=== PATIENT | female | born 1970 | race Caucasian/White ===

== ENCOUNTER 2020-01-27 12:34 | Emergency (ER) | payer BC, OTHER ==
[~2020-01-27] VITALS: Ht 162.5 cm; Wt 1225.0 kg
--- NOTE | 2020-01-27 12:34 | NUR ---
Patient has called to state she was deferred from [facility] for evaluation and sent to ER. Pt was instructed to remain in car for nurse assist into ER through private [facility] Entrance. Pt not sure whether she needs ER visit but states back pain starting [id number] is really bothering her. COVID tested at [facility] 01/25/20 and is positive
--- NOTE | 2020-01-27 12:45 | NUR ---
Called to speak with patient. A helicopter has landed and ambulances coming to count includes the [facility]. Pt advised per RN watching for safety to enter ER garage doorway. Pt states she is fine and not SOA and will watch for RN to outside to motion her.
--- NOTE | 2020-01-27 12:53 | NUR ---
Patient has arrived to ED 5 to [facility] isolation room with RN accompanying. EKG being performed for c/o severe medial back pain since [id number].
[2020-01-27] MEDS ORDERED: LOVA10TA (13:25)
[2020-01-27] MEDS ORDERED: HYDR25TA4 (13:25)
[2020-01-27] MEDS ORDERED: ISOS30TA3 (13:25)
[2020-01-27] MEDS ORDERED: METF-399 (13:25)
[2020-01-27] MEDS ORDERED: PHEN37.53 (13:25)
[2020-01-27] MEDS ORDERED: ATEN50TA (13:25)
[2020-01-27] MEDS ORDERED: FLUV100T3 (13:25)
[2020-01-27] MEDS ORDERED: VENL75CA93 (13:25)
[2020-01-27] MEDS ORDERED: ALPR0.5T7 (13:25)
[2020-01-27] MEDS ORDERED: RIVA20TA (13:25)
[2020-01-27] MEDS ORDERED: LOSA50TA63 (13:25)
[2020-01-27] MEDS ORDERED: SEMA1PEN (13:25)
[2020-01-27] MEDS ORDERED: VENL150C98 (13:25)
--- NOTE | 2020-01-27 13:28 | NUR ---
Portable chest xray completed
--- NOTE | 2020-01-27 13:39 | Diagnostic Imaging Report ---
EXAM: CHEST 1 VIEW AP/PA ONLY INDICATION: Back pain. COMPARISON: None. FINDINGS: Normal heart size and central pulmonary vascularity. Low lung volumes. No focal pulmonary opacity, pleural effusion or pneumothorax. No acute osseous findings. IMPRESSION: Low lung volumes. Chest otherwise negative. Dictated by: Dictated on workstation # [id number]
[2020-01-27] MEDS ORDERED: morphine INJ 10 MG/ML 1ML (SYR OR VIAL) IVP STA (13:44)
[2020-01-27] MEDS ORDERED: ONDANSETRON 4 MG/2 ML (SDV) Z0FRAN IVP ONE (13:45)
[2020-01-27 13:56] LABS: HEMATOCRIT 43 % (35-52); HEMOGLOBIN 13.8 G/DL (11.5-16.0); MEAN CORPUSCULAR HEMOGLOBIN 27 PG (25-34); MEAN CORPUSCULAR HGB CONC 33 G/DL (32-36); MEAN CORPUSCULAR VOLUME 85 FL (80-99); PLATELET COUNT 181 10^3/uL (130-400)
[2020-01-27 13:57] LABS: BASOPHILS % (AUTO) 1 % (0-10); EOSINOPHILS % (AUTO) 3 % (0-10); LYMPHOCYTES % (AUTO) 54 % (12-44); MONOCYTES % (AUTO) 11 % (0-12); NEUTROPHILS % (AUTO) 32 % (42-75)
[2020-01-27 13:58] LABS: EOSINOPHILS # (AUTO) 0.1 10^3/uL (0.0-0.3); LYMPHOCYTES # (AUTO) 2.2 X 10^3 (1.0-4.0); MONOCYTES # (AUTO) 0.5 X 10^3 (0.0-1.0); NEUTROPHILS # (AUTO) 1.3 X 10^3 (1.8-7.8)
[2020-01-27 14:08] LABS: ALANINE AMINOTRANSFERASE 20 U/L (0-55); ALKALINE PHOSPHATASE 71 U/L (40-136); BILIRUBIN,TOTAL 0.2 MG/DL (0.1-1.0); BUN/CREATININE RATIO 16; CARBON DIOXIDE 29 MMOL/L (21-32); CHLORIDE 96 MMOL/L (98-107); CREATININE SERUM 0.62 MG/DL (0.60-1.30); GFR ESTIMATED > 60; GLUCOSE 149 MG/DL (70-105); POTASSIUM 3.4 MMOL/L (3.6-5.0); SODIUM 134 MMOL/L (135-145)
[2020-01-27 14:09] LABS: TOTAL PROTEIN 7.1 GM/DL (6.4-8.2)
[2020-01-27 14:12] LABS: CLARITY,URINE CLEAR; COLOR,URINE YELLOW; PROTEIN,URINE NEGATIVE (NEGATIVE)
[2020-01-27 14:13] LABS: BACTERIA,URINE NEGATIVE /HPF; BILIRUBIN,URINE NEGATIVE (NEGATIVE); GLUCOSE, URINE (UA) NEGATIVE (NEGATIVE); KETONES,URINE NEGATIVE (NEGATIVE); LEUKOCYTE ESTERASE ,URINE NEGATIVE (NEGATIVE); NITRITE,URINE NEGATIVE (NEGATIVE); SQUAMOUS EPITHELIAL CELL,UR 0-2 /HPF; WBC,URINE RARE /HPF
[2020-01-27] MEDS ORDERED: TRM50T PO (14:42)
[2020-01-27] MEDS ORDERED: CYCL10TA9 PO (14:42)
[2020-01-27 14:53] VITALS: BP 119/81
--- NOTE | 2020-01-27 14:57 | ED Back Pain ---
General Chief Complaint: Back Problems Stated Complaint: CHEST PAIN Nursing Triage Note: Patient presents to ER with severe medial back pain along bra line starting [id number]. Pt states she is COVID positive 01/25/20 from [facility] testing. Cough last to beginning h.a. then severe sinus pressure Tuesday. No current respiratory sx but mild non-prod cough and back pain. Nursing Sepsis Screen: No Definite Risk Source of Information: Patient History of Present Illness Date Seen by Provider: Jan 27, 2020 Time Seen by Provider: 13:00 Initial Comments Patient is a 49-year-old COVID positive female who presents with complaints of cough, upper thoracic back pain, generalized malaise. Symptom onset was 4 days ago. Back pain is gradually progressed over the past 2 days. Currently denies fever chills, nausea vomiting or sweats. No shortness of breath, upper abdominal pain. No urinary frequency urgency or dysuria. Patient does report mild headache and took Tylenol prior to ED arrival with minimal relief of headache and back pain. Does have history of PE and is currently anticoagulated on his rales ago. Denies missed doses. Denies increased leg pain or swelling. No other acute symptoms or complaints. Timing/Duration: 4-5 Days Severity: Moderate Pain/Injury Location: Back Modifying Factors: Improves With Movement, Improves With Pain Medication Associated Symptoms: denies symptoms Allergies and Home Medications Allergies Coded Allergies: No Known Drug Allergies (Unverified , 01/27/20) Home Medications Cyclobenzaprine HCl 10 Mg Tablet, 10 MG PO TID Prescribed by: DARIO MARCUM on 01/27/20 1442 Tramadol HCl 50 Mg Tablet, 50 MG PO Q6H PRN for PAIN Prescribed by: DARIO MARCUM on 01/27/20 1442 Patient Home Medication List Home Medication List Reviewed: Yes Review of Systems Constitutional: see HPI EENTM: see HPI Respiratory: see HPI Cardiovascular: see HPI Gastrointestinal: see HPI Genitourinary: see HPI Musculoskeletal: back pain Skin: see HPI Psychiatric/Neurological: See HPI All Other Systems Reviewed Negative Unless Noted: Yes Past Gedeslg-Ygxkwk-Soxvpz Hx Past Med/Social Hx: Reviewed Nursing Past Med/Soc Hx Patient Social History Alcohol Use: Denies Use Recreational Drug Use: No Smoking Status: Never a Smoker Recent Foreign Travel: No Contact w/Someone Who Travel: No Recent Infectious Disease Expo: No Recent Hopitalizations: No Physical Abuse: No Sexual Abuse: No Mistreated: No Fear: No Immunizations Up To Date Date of Influenza Vaccine: Dec 25, 2019 Seasonal Allergies Seasonal Allergies: No Past Medical History Surgeries: Yes (Foot surgery, partial hysterectomy) Section, Gallbladder, Hysterectomy, Orthopedic Respiratory: Yes (PE approx 15 yrs ago, on Xaralto) Pulmonary Embolism Cardiac: Yes High Cholesterol, Hypertension Neurological: No : No 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 oz. kg; 463.00 BMI Method: General Appearance: WD/WN, Anxious, Mild Distress HEENT: PERRL/EOMI, Normal ENT Inspection Neck: Full Range of Motion, Supple Cardiovascular: Regular Rate, Rhythm Respiratory: Chest Non Tender, Lungs Clear, Normal Breath Sounds, No Accessory Muscle Use, No Respiratory Distress Gastrointestinal: No Abnormal Bowel Sounds, No Guarding Back: Normal Inspection, No CVA Tenderness, No Vertebral Tenderness Extremity: Non Tender, No Calf Tenderness Neurologic/Psychiatric: Alert, Oriented x3, No Motor/Sensory Deficits Skin: Normal Color, Warm/Dry Lymphatic: No Adenopathy Progress/Results/Core Measures Results/Orders Lab Results Laboratory Tests Test 01/27/20 13:10 01/27/20 14:00 Range/Units White Blood Count 4.0 L 4.3-11.0 10^3/uL Red Blood Count 5.03 4.35-5.85 10^6/uL Hemoglobin 13.8 11.5-16.0 G/DL Hematocrit 43 35-52 % Mean Corpuscular Volume 85 80-99 FL Mean Corpuscular Hemoglobin 27 25-34 PG Mean Corpuscular Hemoglobin Concent 33 32-36 G/DL Red Cell Distribution Width 13.5 10.0-14.5 % Platelet Count 181 130-400 10^3/uL Mean Platelet Volume 10.0 7.4-10.4 FL Immature Granulocyte % (Auto) 0 % Neutrophils (%) (Auto) 32 L 42-75 % Lymphocytes (%) (Auto) 54 H 12-44 % Monocytes (%) (Auto) 11 0-12 % Eosinophils (%) (Auto) 3 0-10 % Basophils (%) (Auto) 1 0-10 % Neutrophils # (Auto) 1.3 L 1.8-7.8 X 10^3 Lymphocytes # (Auto) 2.2 1.0-4.0 X 10^3 Monocytes # (Auto) 0.5 0.0-1.0 X 10^3 Eosinophils # (Auto) 0.1 0.0-0.3 10^3/uL Basophils # (Auto) 0.0 0.0-0.1 10^3/uL Immature Granulocyte # (Auto) 0.0 0.0-0.1 10^3/uL D-Dimer 0.12 0.00-0.49 UG/ML Sodium Level 134 L 135-145 MMOL/L Potassium Level 3.4 L 3.6-5.0 MMOL/L Chloride Level 96 L 98-107 MMOL/L Carbon Dioxide Level 29 21-32 MMOL/L Anion Gap 9 5-14 MMOL/L Blood Urea Nitrogen 10 7-18 MG/DL Creatinine 0.62 0.60-1.30 MG/DL Estimat Glomerular Filtration Rate > 60 BUN/Creatinine Ratio 16 Glucose Level 149 H 70-105 MG/DL Calcium Level 9.0 8.5-10.1 MG/DL Corrected Calcium 9.0 8.5-10.1 MG/DL Total Bilirubin 0.2 0.1-1.0 MG/DL Aspartate Amino Transf (AST/SGOT) 16 5-34 U/L Alanine Aminotransferase (ALT/SGPT) 20 0-55 U/L Alkaline Phosphatase 71 40-136 U/L Troponin I < 0.30 <0.30 NG/ML Total Protein 7.1 6.4-8.2 GM/DL Albumin 4.0 3.2-4.5 GM/DL Urine Color YELLOW Urine Clarity CLEAR Urine pH 6.0 5-9 Urine Specific [place] 1.020 1.016-1.022 Urine Protein NEGATIVE NEGATIVE Urine Glucose (UA) NEGATIVE NEGATIVE Urine Ketones NEGATIVE NEGATIVE Urine Nitrite NEGATIVE NEGATIVE Urine Bilirubin NEGATIVE NEGATIVE Urine Urobilinogen 0.2 < = 1.0 MG/DL Urine Leukocyte Esterase NEGATIVE NEGATIVE Urine RBC (Auto) NEGATIVE NEGATIVE Urine RBC NONE /HPF Urine WBC RARE /HPF Urine Squamous Epithelial Cells 0-2 /HPF Urine Crystals NONE /LPF Urine Bacteria NEGATIVE /HPF Urine Casts NONE /LPF Urine Mucus NEGATIVE /LPF Urine Culture Indicated NO My Orders Orders - DARIO MARCUM DO Chest 1 View Ap/Pa Only (01/27/20 13:24) Morphine Injection (Morphine Injection (01/27/20 13:44) Ondansetron Injection (Zofran Injectio (01/27/20 13:45) Cbc With Automated Diff (01/27/20 13:44) Troponin I Fs (01/27/20 13:44) Comprehensive Metabolic Panel (01/27/20 13:44) Ua Culture If Indicated (01/27/20 13:44) Fibrin Degradation Products (01/27/20 13:44) Ekg Tracing (01/27/20 12:53) Medications Given in ED Current Medications Medications Dose Ordered Sig/Milady Route Start Time Stop Time Status Last Admin Dose Admin Ondansetron HCl 4 mg ONCE ONCE IVP 01/27/20 13:45 01/27/20 13:46 DC 01/27/20 13:54 4 MG Vital Signs/I&O 01/27/20 01/27/20 12:53 13:54 Temp 37.0 37.0 Pulse 73 Resp 20 B/P (MAP) 102/79 (87) Pulse Ox 100 O2 Delivery Room Air Blood Pressure Mean: 87 Departure Impression Primary Impression: Musculoskeletal back pain Additional Impression: COVID-19 Disposition: 01 HOME, SELF-CARE Condition: Stable Departure-Patient Inst. Decision time for Depature: 13:30 Patient Instructions: Back Muscle Strain (DC) Scripts Cyclobenzaprine HCl (Cyclobenzaprine HCl) 10 Mg Tablet 10 MG PO TID, #30 TAB Prov: DARIO MARCUM DO 01/27/20 Tramadol HCl (Tramadol HCl) 50 Mg Tablet 50 MG PO Q6H PRN for PAIN for 3 Days, #20 TAB 0 Refills Prov: DARIO MARCUM DO 01/27/20 DARIO MARCUM DO Jan 27, 2020 14:57
== END 2020-01-27 14:53 | disposition home or self-care (01) ==
LOC: EDUNIT# 12:34 → ER FS 12:36
DX: M54.9 Dorsalgia, unspecified (principal); U07.1 COVID-19; F41.9 Anxiety disorder, unspecified
CPT/HCPCS: 36415; 71045; 80053; 81000; 84484; 85025; 85379; 93005

== ENCOUNTER 2020-02-05 11:52 | Observation (INO) | payer BC ==
[~2020-02-05] VITALS: Ht 162.6 cm; Wt 117.3 kg
[~2020-02-05 11:52] MED LIST: ALPR0.5T7 PO; ATEN50TA PO; CYCL10TA9 PO; FLUV100T3 PO; HYDR25TA4 PO; ISOS30TA3 PO; LOSA50TA63 PO; LOVA10TA PO; METF-399 PO; PHEN37.53 PO; RIVA20TA PO; SEMA1PEN INJ; TRM50T PO; VENL150C98 PO; VENL75CA93 PO
[2020-02-05] MEDS ORDERED: morphine INJ 10 MG/ML 1ML (SYR OR VIAL) IM STA (12:18)
[2020-02-05] MEDS ORDERED: ONDANSETRON 4 MG (ZOFRAN) ORAL DISSOLVE TAB PO STA (12:18)
--- NOTE | 2020-02-05 12:58 | ED Back Pain ---
General Chief Complaint: Lower Extremity Stated Complaint: RT HIP/LEG PAIN History of Present Illness Date Seen by Provider: Feb 05, 2020 Time Seen by Provider: 12:00 Initial Comments Patient is a 49-year-old female who presents with acute onset right hip pain radiating down to right lateral leg below the knee. Symptom onset was 4 hours ago while getting ready to work. Patient states she took a step off her porch and felt a sudden sharp shooting pain. Pain is originally reported as moderate but has gradually worsened throughout the day to the point that patient needed assistance with a wheelchair order to use the bathroom. Patient has had ibuprofen and Tylenol prior to ED arrival without relief of symptoms. She was evaluated by her chiropractor and an adjustment for hip which did not help.. She denies extremity weakness or loss of sensation or low back pain. No other acute symptoms or complaints. Location: Other Timing/Duration: 4-6 Hours Severity: Severe Pain/Injury Location: Pelvis Radiation: Buttocks, Lower Legs Method of Injury: Unknown Modifying Factors: Improves With Movement, Improves With Pain Medication Associated Symptoms: denies symptoms Allergies and Home Medications Allergies Coded Allergies: No Known Drug Allergies (Unverified , 01/27/20) Home Medications Cyclobenzaprine HCl 10 Mg Tablet, 10 MG PO TID Prescribed by: DARIO MARCUM on 01/27/20 144 Tramadol HCl 50 Mg Tablet, 50 MG PO Q6H PRN for PAIN Prescribed by: DARIO MARCUM on 01/27/20 1442 Patient Home Medication List Home Medication List Reviewed: Yes Review of Systems Constitutional: see HPI EENTM: see HPI Respiratory: see HPI Cardiovascular: see HPI Gastrointestinal: no symptoms reported Genitourinary: no symptoms reported Musculoskeletal: no symptoms reported Skin: no symptoms reported Psychiatric/Neurological: No Symptoms Reported Past Whtbvtr-Ebyrmh-Pkwwqg Hx Past Med/Social Hx: Reviewed Nursing Past Med/Soc Hx Patient Social History Alcohol Use: Denies Use Recreational Drug Use: No Smoking Status: Never a Smoker 2nd Hand Smoke Exposure: No Recent Hopitalizations: No Physical Abuse: No Sexual Abuse: No Mistreated: No Fear: No Immunizations Up To Date Date of Influenza Vaccine: Dec 25, 2019 Seasonal Allergies Seasonal Allergies: No Past Medical History Surgeries: Yes (Foot surgery, partial hysterectomy) Section, Gallbladder, Hysterectomy, Orthopedic Respiratory: Yes (PE approx 15 yrs ago, on Xarelto) Pulmonary Embolism Cardiac: Yes High Cholesterol, Hypertension Neurological: No 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 oz. kg; 463.00 BMI Method: General Appearance: Anxious, Mild Distress HEENT: PERRL/EOMI, Normal ENT Inspection, Pharynx Normal Neck: Non Tender, Supple Cardiovascular: Regular Rate, Rhythm Respiratory: Chest Non Tender, Lungs Clear Gastrointestinal: Non Tender, Soft Back: Normal Inspection, No CVA Tenderness, Other (R upper buttock pain/tendernes. + SLR on right. ) Extremity: Non Tender, No Calf Tenderness Neurologic/Psychiatric: Alert, Oriented x3 Progress/Results/Core Measures Results/Orders My Orders Orders - DARIO MARCUM DO Morphine Injection (Morphine Injection (02/05/20 12:18) Ondansetron Oral Dissolve Tab (Zofran (02/05/20 12:18) Departure Communication (Admissions) Right buttock pain with radiculopathy. No focal neurologic deficits. Pain improved with treatment. Recommend continued supportive care with PCP follow-up in chiropractic referral as needed. Impression Primary Impression: Musculoskeletal pain of right lower extremity Disposition: HOME, SELF-CARE Condition: Stable Departure-Patient Inst. Decision time for Depature: 12:57 Referrals: [facility] (PCP) Primary Care Physician DAKOTA AU APRN (Family) Primary Care Physician Patient Instructions: Muscle Strain, Hip Pain Add. Discharge Instructions: Please avoid strenuous physical activity and heavy lifting. Take tramadol and Flexeril as needed for pain relief and hydrocodone as needed for additional symptom control. Follow-up with your PCP and/or chiropractor for further management. All discharge instructions reviewed with patient and/or family. Voiced understanding. Scripts Hydrocodone/Acetaminophen (Hydrocodone-Acetamin 5-325 mg) 1 Each Tablet 1 EACH PO Q6H, #14 TAB Prov: DARIO MARCUM DO 02/05/20 Work/School Note: Work Release Form Date Seen in the Emergency Department: Feb 05, 2020 Return to Work: Feb 07, 2020 Restrictions: No Restrictions DARIO MARCUM DO Feb 05, 2020 12:57
[2020-02-05] MEDS ORDERED: ACHD5005 PO (12:59)
[2020-02-05] MEDS ORDERED: ORPHENADRINE 60 MG/2 ML (NORFLEX) AMP (ED ONLY) IVP ONE (13:30)
[2020-02-05] MEDS ORDERED: fentaNYL INJECTION 100 MCG/2 ML AMP IVP ONE (14:45)
[2020-02-05 14:54] LABS: BASOPHILS % (AUTO) 0 % (0-10); EOSINOPHILS # (AUTO) 0.3 10^3/uL (0.0-0.3); EOSINOPHILS % (AUTO) 2 % (0-10); HEMATOCRIT 41 % (35-52); HEMOGLOBIN 13.7 G/DL (11.5-16.0); LYMPHOCYTES # (AUTO) 4.1 X 10^3 (1.0-4.0); LYMPHOCYTES % (AUTO) 31 % (12-44); MEAN CORPUSCULAR HEMOGLOBIN 28 PG (25-34); MEAN CORPUSCULAR HGB CONC 34 G/DL (32-36); MEAN CORPUSCULAR VOLUME 83 FL (80-99); MEAN PLATELET VOLUME 9.8 FL (7.4-10.4); MONOCYTES # (AUTO) 0.9 X 10^3 (0.0-1.0); MONOCYTES % (AUTO) 7 % (0-12); NEUTROPHILS # (AUTO) 7.6 X 10^3 (1.8-7.8); NEUTROPHILS % (AUTO) 58 % (42-75); PLATELET COUNT 281 10^3/uL (130-400); WHITE BLOOD COUNT 13.2 10^3/uL (4.3-11.0)
[2020-02-05 15:01] LABS: CARBON DIOXIDE 30 MMOL/L (21-32); CHLORIDE 97 MMOL/L (98-107); POTASSIUM 3.2 MMOL/L (3.6-5.0); SODIUM 140 MMOL/L (135-145)
[2020-02-05 15:02] LABS: ALANINE AMINOTRANSFERASE 22 U/L (0-55); ALBUMIN 3.9 GM/DL (3.2-4.5); ALKALINE PHOSPHATASE 59 U/L (40-136); BILIRUBIN,TOTAL 0.2 MG/DL (0.1-1.0); BUN/CREATININE RATIO 32; CALCIUM 9.4 MG/DL (8.5-10.1); GFR ESTIMATED > 60; GLUCOSE 136 MG/DL (70-105); TOTAL PROTEIN 6.7 GM/DL (6.4-8.2)
--- NOTE | 2020-02-05 15:38 | Diagnostic Imaging Report ---
INDICATION: Right hip pain. FINDINGS: Three views. Lumbosacral spine shows good alignment. Body height and disc spaces are well-maintained. Facets show good alignment without pars defect. Mild sclerotic changes are noted along the SI joints and the L5-S1 facets bilaterally. There is a stimulator lead noted overlying the right sacrum. IMPRESSION: Mild degenerative changes of the SI joints and L5-S1 facets. Dictated by: Dictated on workstation # [id number]
--- NOTE | 2020-02-05 16:54 | NUR ---
REPORT WAS GIVEN TO STAN AZUL AND STAN ROBERT AT THIS TIME. CARE WAS TRANSFERRED AT THIS TIME. REPORT TO MIRANDA WAS GIVEN TO [id number].
--- NOTE | 2020-02-05 16:57 | NUR ---
Called MIGUEL Denney and is in a patient's room, so she will call back in a sec to get patient report.
[2020-02-05] MEDS ORDERED: CATHETER FLUSH 10 ML SYR IV PRN (18:00)
[2020-02-05] MEDS ORDERED: ONDANSETRON 4 MG/2 ML (SDV) Z0FRAN IV PRN (18:00)
[2020-02-05] MEDS ORDERED: morphine INJ 4 MG/ML 1 ML (VIAL/SYRINGE) IV PRN (18:00)
[2020-02-05 20:00] VITALS: BP 108/69
[2020-02-05] MEDS ORDERED: RIVAROXABAN 20 MG TABLET (XARELTO) PO NR (20:00)
[2020-02-05] MEDS ORDERED: MELATONIN 3 MG TABLET PO PRN (20:00)
[2020-02-05] MEDS ORDERED: diphenhydrAMINE 25 MG TAB (BENADRYL) PO PRN (20:00)
[2020-02-05] MEDS ORDERED: ACETAMINOPHEN 500 MG TAB (TYLENOL) PO PRN (20:00)
[2020-02-05] MEDS ORDERED: LOPERAMIDE 2 MG (IMODIUM) TABLET PO PRN (20:00)
[2020-02-05] MEDS ORDERED: ONDANSETRON 4 MG/2 ML (SDV) Z0FRAN IVP PRN (20:00)
[2020-02-05] MEDS ORDERED: BISACODYL 10 MG SUPP (DULCOLAX) PR PRN (20:00)
[2020-02-05] MEDS ORDERED: DOCUSATE SODIUM 100 MG (COLACE) CAP PO PRN (20:00)
[2020-02-05] MEDS ORDERED: CALCIUM CARBONATE 500 MG (TUMS) TAB.CHEW PO PRN (20:00)
[2020-02-05] MEDS ORDERED: ALPRAZolam 0.25 MG (XANAX) TAB PO PRN (20:00)
[2020-02-05] MEDS: SENNA W/DOCUSATE (SENOKOT S) TABLET PO SCH (20:18)
[2020-02-05] MEDS: CATHETER FLUSH 10 ML SYR IV SCH (20:21)
[2020-02-05] MEDS: HYDROcodone/APAP 5 MG/325 MG (LORTAB) TAB PO PRN (20:21)
[2020-02-06 00:59] VITALS: BP 121/76
[2020-02-06] MEDS: HYDROcodone/APAP 5 MG/325 MG (LORTAB) TAB PO PRN ×3 (03:46→11:44)
[2020-02-06] MEDS: CATHETER FLUSH 10 ML SYR IV SCH ×2 (04:27→11:45)
[2020-02-06 04:41] VITALS: BP 141/78
--- NOTE | 2020-02-06 05:41 | History & Physical-Hospitalist ---
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 She was placed on IV steroids and IV medication and sent to the hospital and at this current time CT scan showed no evidence of any spinal stenosis or any type of slipped disc, couldnt get an MRI because of the bladder stimulator but we will check right hip X-ray, consult ortho and initiate IV Solumedrol X1 again and Baclofen to see if we can help with PT in order to discharge her today. Patient has recovered from COVID 3 weeks ago. Source: patient Exam Limitations: no limitations Date Seen 02/06/20 Time Seen by a Provider: 10:00 Attending Physician Estelita Pfeiffer DO [facility] Referring Physician Date of Admission Feb 05, 2020 at 17:44 Home Medications & Allergies Home Medications Reviewed patient Home Medication Reconciliation performed by pharmacy medication reconciliations photographic laboratory technician and/or nursing. Patients Allergies have been reviewed. Allergies Allergies Coded Allergies No Known Drug Allergies (Lnnlgtvdln92/22/20) Past Nyrggwp-Xwqvfq-Cpujpw Hx Past Med/Social Hx: Reviewed Nursing Past Med/Soc Hx, Reviewed and Corrections made Patient Social History Marrital Status: single Employed/Student: employed Alcohol Use: Denies Use Recreational Drug Use: No Smoking Status: Never a Smoker 2nd Hand Smoke Exposure: No Recent Foreign Travel: No Contact w/other who traveled: No Recent Hopitalizations: No Recent Infectious Disease Expo: Yes (Covid + on Jan 24, recently off precautions) Immunizations Up To Date Date of Influenza Vaccine: Dec 20, 2019 Seasonal Allergies Seasonal Allergies: No Past Medical History Surgeries: Section, Gallbladder, Hysterectomy, Orthopedic Cardiac: High Cholesterol, Hypertension Hysterectomy Endocrine: Diabetes, Non-Insulin dep Psychosocial: Anxiety Skin/Integumentary: Recent Skin Changes History of Blood Disorders: Yes (had a PE 15 yrs ago) Review of Systems Constitutional: see HPI Musculoskeletal: back pain, muscle pain, muscle stiffness, muscle cramps Physical Exam Physical Exam Vital Signs Vital Signs - First Documented 02/05/20 11:52 Temp 35.6 Pulse 72 Resp 20 B/P (MAP) 133/90 (104) Pulse Ox 100 O2 Delivery Room Air Capillary Refill : Less Than 3 Seconds Height, Weight, BMI Height: '" Weight: lbs. oz. kg; 44.36 BMI Method: General Appearance: No Apparent Distress, Chronically ill, Obese Eyes: Right Eye Normal Inspection, Right Eye PERRL HEENT: PERRL/EOMI, Normal ENT Inspection, Pharynx Normal, Moist Mucous Membranes Neck: Full Range of Motion, Normal Inspection, Non Tender Respiratory: Chest Non Tender, Lungs Clear, Normal Breath Sounds, No Accessory Muscle Use, No Respiratory Distress Cardiovascular: Regular Rate, Rhythm, No Edema, No Gallop, No JVD, No Murmur, Normal Peripheral Pulses Gastrointestinal: Normal Bowel Sounds, No Organomegaly, No Pulsatile Mass, Non Tender, Soft Back: Normal Inspection, No CVA Tenderness, No Vertebral Tenderness Extremity: Normal Capillary Refill, Normal Inspection, Normal Range of Motion, Non Tender, No Calf Tenderness, No Pedal Edema Neurologic/Psychiatric: Alert, Oriented x3, No Motor/Sensory Deficits, Normal Mood/Affect Skin: Normal Color, Warm/Dry Lymphatic: No Adenopathy Results Results/Procedures Labs Laboratory Tests 02/05/20 13:40 02/06/20 06:03 Patient resulted labs reviewed. Assessment/Plan Admission Diagnosis Assessment: Incapacitating right back pain and right hip pain DM Obesity HTN HLP Plan: IV steroids CT lumbar spine Right hip xray Steroids Admission Status: Observation Diagnosis/Problems Diagnosis/Problems (1) Musculoskeletal pain of right lower extremity Status: Acute (2) Musculoskeletal back pain Status: Acute (3) COVID-19 Status: Acute Clinical Quality Measures DVT/VTE Risk/Contraindication: Risk Factor Score Per Nursin RFS Level Per Nursing on Admit: 4+=Very High ESTELITA PFEIFFER DO Feb 06, 2020 05:41
[2020-02-06 06:16] LABS: BASOPHILS % (AUTO) 0 % (0-10); EOSINOPHILS % (AUTO) 0 % (0-10); HEMATOCRIT 40 % (35-52); HEMOGLOBIN 13.2 g/dL (11.5-16.0); LYMPHOCYTES # (AUTO) 1.8 10^3/uL (1.0-4.0); LYMPHOCYTES % (AUTO) 20 % (12-44); MEAN CORPUSCULAR HEMOGLOBIN 28 pg (25-34); MEAN CORPUSCULAR HGB CONC 33 g/dL (32-36); MEAN CORPUSCULAR VOLUME 84 fL (80-99); MEAN PLATELET VOLUME 9.9 fL (9.0-12.2); MONOCYTES # (AUTO) 0.7 10^3/uL (0.0-1.0); MONOCYTES % (AUTO) 8 % (0-12); NEUTROPHILS # (AUTO) 6.2 10^3/uL (1.8-7.8); NEUTROPHILS % (AUTO) 69 % (42-75); PLATELET COUNT 241 10^3/uL (130-400); WHITE BLOOD COUNT 8.9 10^3/uL (4.3-11.0)
[2020-02-06 06:42] LABS: ALBUMIN 3.4 GM/DL (3.2-4.5); CHLORIDE 97 MMOL/L (98-107); POTASSIUM 4.1 MMOL/L (3.6-5.0); SODIUM 137 MMOL/L (135-145)
[2020-02-06 06:44] LABS: CALCIUM 8.4 MG/DL (8.5-10.1)
[2020-02-06 06:45] LABS: GLUCOSE 218 MG/DL (70-105); TOTAL PROTEIN 6.1 GM/DL (6.4-8.2)
[2020-02-06 06:46] LABS: CARBON DIOXIDE 28 MMOL/L (21-32)
[2020-02-06 06:47] LABS: BILIRUBIN,TOTAL 0.3 MG/DL (0.1-1.0)
[2020-02-06 06:48] LABS: ALKALINE PHOSPHATASE 54 U/L (40-136); CREATININE SERUM 0.68 MG/DL (0.60-1.30); GFR ESTIMATED > 60
[2020-02-06 06:50] LABS: BUN/CREATININE RATIO 22
[2020-02-06 06:51] LABS: ALANINE AMINOTRANSFERASE 25 U/L (0-55)
[2020-02-06 07:30] VITALS: BP 132/65
[2020-02-06] MEDS: SENNA W/DOCUSATE (SENOKOT S) TABLET PO SCH (08:13)
--- NOTE | 2020-02-06 10:36 | Diagnostic Imaging Report ---
PROCEDURE: CT lumbar spine without contrast. TECHNIQUE: Multiple contiguous axial images were obtained through the lumbar spine without the use of intravenous contrast. Sagittal and coronal reformations were then performed. Auto Exposure Controls were utilized during the CT exam to meet ALARA standards for radiation dose reduction. INDICATION: Pain radiating to the right hip and leg There is normal height and alignment of the lumbar vertebral bodies. Disc spaces are well-maintained. There are mild degenerated facets with no disc herniation or bony stenosis seen at any level. No nerve impingement is evident. There is no acute bony abnormality. There is no mass. There is a 6 mm calculus in the lower pole of the right kidney. IMPRESSION: There are mild degenerative changes present with no disc herniation or bony stenosis seen. There is a 6 mm nonobstructing calculus in the lower pole of the right kidney. Dictated by: Dictated on workstation # [id number]
[2020-02-06] MEDS ORDERED: methylPREDNISolone 40 MG/ML (Solu-MEDROL) VIAL IV NR (11:15)
[2020-02-06] MEDS ORDERED: BACLOFEN 10 MG (LIORESAL) TAB PO SCH (11:15)
[2020-02-06] MEDS ORDERED: ACET-2267 PO (11:22)
[2020-02-06] MEDS ORDERED: CYCL10TA9 PO (11:22)
[2020-02-06] MEDS ORDERED: TRAM50TA3 PO (11:22)
--- NOTE | 2020-02-06 11:24 | NUR ---
SPOKE WITH THE PT AND WENT THRU THE EXT MED HISTORY TO COMPLETE THE MED REC PT WAS ABLE TO NAME ALL HER MEDICATIONS WELL WHEN/HOW SHE TAKES EACH. ALL THE INFORMATION SHE PROVIDED MATCHED THE EXT MED HISTORY GLIMEPIRIDE WAS LAST FILLED ON 10-07-2019 #90/90DS ACCORDING TO THE EXT MED HISTORY- HOWEVER PT SAYS THIS MED HAS BEEN DISCONTINUED DUE TO IMPROVED A1C OTC MEDS: TYLENOL
[2020-02-06 11:38] VITALS: BP 128/81
--- NOTE | 2020-02-06 12:10 | Diagnostic Imaging Report ---
INDICATION: Right hip pain starting after stepping off the porch one day earlier. TECHNIQUE: 2 views of the right hip. CORRELATION STUDY: None FINDINGS: Images of the hip demonstrate no evidence for acute fracture. Alignment is anatomic. The femoral head acetabular relationship is unremarkable. The bony trabecular pattern is intact. A right-sided transsacral stimulator is present. IMPRESSION: 1. Negative for acute bony abnormality of the right hip. Dictated by: Dictated on workstation # [id number]
--- NOTE | 2020-02-06 12:14 | NUR ---
LEFT MESSAGE ON DR ALCALA'S REGARDING DR ZARAGOZA'S CONSULT AND THE HIP XRAY RESULTS
--- NOTE | 2020-02-06 12:47 | Occupational Therapy Eval ---
OT Evaluation-General/PLF Medical Diagnosis Admission Date Feb 05, 2020 at 17:44 Medical Diagnosis: R hip pain Onset Date: Feb 06, 2020 Therapy Diagnosis Therapy Diagnosis: Sciatica likely, interfering with I/ADL tasks Precautions Precautions/Isolations: Standard Precautions Referral Physician: Kentrell Palma Reason: Activity Tolerance, Self Care, Evaluation/Treatment, Strengthening/ROM Medical History Additional Medical History COVID + Jan 24 (off precautions), HTN, anx, PE hx Current History Pt admits with R hip pain that shoots distally to knee Reviewed History: Yes Social History Home: Single Level Current Living Status: Alone Entry Into Home: Ramp ADL-Prior Level of Function SCALE: Activities may be completed with or without assistive devices. 9-Vuxxdhziep-rlyjcdy completes the activity by him/herself with no assistance from a helper. 5-Set-up or Clean-up Assistance-helper sets up or cleans up; patient completes activity. Rowan assists only prior to or following the activity. 4-Supervision or Touching Assistance-helper provides verbal cues and/or touching/steadying and/or contact guard assistance as patient completes activity. Assistance may be provided throughout the activity or intermittently. 3-Partial/Moderate Assistance-helper does LESS THAN HALF the effort. Rowan lifts, holds or supports trunk or limbs, but provides less than half the effort. 2-Substantial/Maximal Assistance-helper does MORE THAN HALF the effort. Rowan lifts or holds trunk or limbs and provides more than half the effort. 3-Joacvpgjq-jjjrmk does ALL the effort. Patient does none of the effort to complete the activity. Or, the assistance of 2 or more helpers is required for the patient to complete the activity. If activity was not attempted, code reason: 7-Patient Refused. 9-Not Applicable-not attempted and the patient did not perform the activity before the current illness, exacerbation or injury. 10-Not Attempted due to Environmental Limitations-(lack of equipment, weather restraints, etc.). 88-Not Attempted due to Medical Conditions or Safety Concerns. ADL PLOF Comments IND without AD. 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 Pt describes pain as sharp/ shooting from hip downward when up/moving. Pt states it was "so bad, I had to use a w/c to go to the bathroom at work." Per signs/ sx, most likely sciatic nerve entrapment/ aggravation. Mental Status/Objective Patient Orientation: Normal For Age Current Glasses/Contacts: No Hearing Aids: No Dentures/Partials: No Upper Extremity ROM WLF BUE Upper Extremity Coordination WLF BUE Upper Extremity Sensation WLF BUE Upper Extremity Strength WLF BUE ADL-Treatment Eating (QC): 6 (per clinical judgment and pt report of today's tasks) Oral Hygiene (QC): 6 (per clinical judgment and pt report of today's tasks) Shower/Bathe Self (QC): 6 (per clinical judgment and pt report of today's tasks) Upper Body Dressing (QC): 6 (per clinical judgment and pt report of today's tasks) Lower Body Dressing (QC): 4 (per clinical judgment and pt report of today's tasks) Toileting Hygiene (QC): 4 (per clinical judgment and pt report of today's tasks) Other Treatments Pt in bed, nursing administering pain medication. Pt describes pain, stating she didn't do anything to aggravate leg. Pt is educated on sciatic nerve symptoms and actions that may lead to sciatic nerve issues. Pt performs 1 set of 5 nerve glides to R leg while laying supine with education of purpose and process. Pt is encouraged to complete this in bed as often as needed. Pt rolls to L side with R glute exposed; OT palpates mms within R glute with noted tension through ~4 " diameter. Mm tension release methods completed and pt is educated on completing on own as rendered. Pt agrees. Pt educated on OP PT's role in dry needling and benefits of massage/ nerve glides/ possibility of an order for OP PT if DO approves. Pt agrees. Pt is IND-SBA with ADLs per pt report, stating she toileted/ showered this am. No skilled OT indicated. D/c. Education OT Patient Education: Correct positioning, Exercise program, Home exercise program, Purpose of tx/functional activities Teaching Recipient: Patient Teaching Methods: Demonstration, Discussion Response to Teaching: Verbalize Understanding, Return Demonstration, Reinforcement Needed OT Rockboard Lather Goals Half-Way Goals 1=Demonstrate adherence to instructed precautions during ADL tasks. 2=Patient will verbalize/demonstrate understanding of assistive dev ices/modifications for ADL. 3=Patient will improve strength/tolerance for activity to enable patient to perform ADL's. OT Education/Plan Problem List/Assessment Assessment: No Skilled OT Needs ID'd Discharge Recommendations Plan/Recommendations: Discharge/Goals Met Therapy Discharge Recommendati: Home & Family, Post Acute PT Treatment Plan/Plan of Care Treatment,Training & Education: Yes Patient would benefit from OT for education, treatment and training to promote independence in ADL's, mobility, safety and/or upper extremity function for ADL's. Plan of Care: OTHER (eval only. d/c.) Treatment Duration: Feb 06, 2020 Frequency: 1 time per week Time/GCodes Start Time: 11:45 Stop Time: 12:00 Total Time Billed (hr/min): 15 Billed Treatment Time 1, EVL (15) d/c. ISELA MEAD OTR Feb 06, 2020 12:47
--- NOTE | 2020-02-06 13:32 | Consultation - Ortho ---
Consult - Ortho Subjective Date of Exam 02/06/20 Chief Complaint Right hip and leg pain HPI/Events since last exam Nahed Vaughn is a 49-year-old white female who noted the onset of right hip and leg pain yesterday morning. She was coming down off her porch stepping onto her driveway and felt a pain in her right hip region. She stated she didn't feel like she was going to fall her fall and she didn't twist her leg. Her pain gradually increased and she went to her chiropractor Dr. Brito who did an adjustment. He felt that there was some pelvic obliquity. This adjustment didn't help and her pain continued to increase. It got to the point where it was so bad she had difficulty walking so she went to the emergency room in [place]. She was evaluated there and continued with pain to the point where they thought it might be best to transfer her to [facility] for pain management and further workup. She continues with her pain although it is improved. She's had 2 doses of IV steroids. She is up walking with assistance without a walker or cane but continues with her pain. She states the pain is from her hip and goes down to mid thigh. She denies any numbness or tingling. She denies any back pain. She hasn't had a history of back problems. She denies any history of problems with her right hip. Medical, Surgical History Reviewed and no additions or changes Social History Reviewed and no additions or changes Family History Reviewed and no additions or changes Review of Systems Reviewed and no additions or changes Allergies: Coded Allergies: No Known Drug Allergies (Unverified , 01/27/20) Home Meds Reported Medications Acetaminophen (Tylenol Extra Strength) 500 Mg Tablet, 1000 MG PO Q8H PRN for PAIN-MILD (1-4), TAB 02/06/20 Cyclobenzaprine HCl (Cyclobenzaprine HCl) 10 Mg Tablet, 10 MG PO TID PRN for MUSCLE CRAMPS, TAB 02/06/20 Tramadol HCl (Tramadol HCl) 50 Mg Tablet, 50 MG PO Q6H PRN for PAIN-MODERATE (5- 7), TAB 02/06/20 Alprazolam (Alprazolam) 0.5 Mg Tablet, 0.5 MG PO BID PRN for ANXIETY, TAB 01/27/20 Isosorbide Mononitrate (Isosorbide Mononitrate ER) 30 Mg Tab.er.24h, 30 MG PO DA CELSO, TAB 01/27/20 Hydrochlorothiazide (Hydrochlorothiazide) 25 Mg Tablet, 25 MG PO DAILY, TAB 01/27/20 Fluvoxamine Maleate (Fluvoxamine Maleate) 100 Mg Tablet, 100 MG PO BID, TAB 01/27/20 Losartan Potassium (Losartan Potassium) 50 Mg Tablet, 50 MG PO HS, TAB 01/27/20 Venlafaxine HCl (Venlafaxine HCl ER) 150 Mg Cap.er.24h, 150 MG PO HS TAKES 75MG +150MG TO EQUAL 225MG 01/27/20 Venlafaxine HCl (Venlafaxine HCl ER) 75 Mg Cap.er.24h, 75 MG PO HS, CAP TAKES 75MG +150MG TO EQUAL 225MG 01/27/20 Atenolol (Atenolol) 50 Mg Tablet, 50 MG PO HS, TAB 01/27/20 Phentermine HCl (Phentermine HCl) 37.5 Mg Tablet, 37.5 MG PO DAILY PRN for APPETITE SUPPRESSION, TAB 01/27/20 Lovastatin (Lovastatin) 10 Mg Tablet, 10 MG PO HS, TAB 01/27/20 Semaglutide (Ozempic) 1 Mg/0.75 Ml Pen.injctr, 1 MG INJ TUESDAY, SYR 01/27/20 Rivaroxaban (Xarelto) 20 Mg Tablet, 20 MG PO HS, TAB 01/27/20 Metformin HCl (Metformin HCl) 1,000 Mg Tablet, 1000 MG PO BID, TAB 01/27/20 Discontinued Scripts Hydrocodone/Acetaminophen (Hydrocodone-Acetamin 5-325 mg) 1 Each Tablet, 1 EACH PO Q6H, #14 TAB Prov:DARIO MARCUM DO 02/05/20 Cyclobenzaprine HCl (Cyclobenzaprine HCl) 10 Mg Tablet, 10 MG PO TID, #30 TAB Prov:DARIO MARCUM DO 01/27/20 Tramadol HCl (Tramadol HCl) 50 Mg Tablet, 50 MG PO Q6H PRN for PAIN for 3 Days, #20 TAB 0 Refills Prov:DARIO MARCUM DO 01/27/20 Objective Exam Constitutional: [] HEENT: [] Neck: [] Cardiovascular: [] Respiratory: [] Gastrointestinal: [] Genitourinary: [] Skin: [] Back/Spine: [] No pain on palpation of the lumbar spine. She has minimal pain over the right sacroiliac joint. She does have significant pain on palpation over sciatic nerve. Extremities: [] Mild pain over the posterior aspect of the greater trochanter. Minimal pain with gentle flexion and extension or rotation of the hip and all the pain is posterior greater trochanter and sciatic notch. No anterior hip pain. No thigh pain. No swelling or bruising. No skin changes. No pain at the knee with full motion and no instability. Negative Homans. No calf tenderness. She does have a positive straight leg raise. No weakness on flexion and extension of the knee. No weakness on dorsiflexion plantar flexion foot and ankle. No weakness on dorsiflexion of the great toe. She has normal sensation to the foot and toes. Good capillary refill. Good pulses. Again no skin changes are noted. Neurologic: [] Psychiatric: [] Hematologic/lymphatic/immunologic: [] Vital Signs Vital Signs Date Time Temp Pulse Resp B/P (MAP) Pulse Ox O2 Delivery O2 Flow Rate FiO2 02/06/20 11:38 35.9 67 17 128/81 (97) 100 Room Air 02/06/20 08:00 98 Room Air 02/06/20 07:30 36.6 70 18 132/65 (87) 97 Room Air 02/06/20 04:41 36.3 64 20 141/78 (99) 98 Room Air 02/06/20 00:59 36.1 73 20 121/76 (91) 98 Room Air 02/05/20 20:00 36.2 78 18 108/69 (82) 94 Room Air 02/05/20 20:00 Room Air 02/05/20 18:31 Room Air 02/05/20 16:54 35.2 73 14 104/46 93 Room Air 02/05/20 15:51 35.6 I & O 02/06/20 07:00 Intake Total 650 ml Balance 650 ml Lab Results Laboratory Tests 02/05/20 13:40: White Blood Count 13.2H, Red Blood Count 4.94, Hemoglobin 13.7, Hematocrit 41, Mean Corpuscular Volume 83, Mean Corpuscular Hemoglobin 28, Mean Corpuscular Hemoglobin Concent 34, Red Cell Distribution Width 13.4, Platelet Count 281, Mean Platelet Volume 9.8, Immature Granulocyte % (Auto) 2, Neutrophils (%) (Auto) 58, Lymphocytes (%) (Auto) 31, Monocytes (%) (Auto) 7, Eosinophils (%) (Auto) 2, Basophils (%) (Auto) 0, Neutrophils # (Auto) 7.6, Lymphocytes # (Auto) 4.1H, Monocytes # (Auto) 0.9, Eosinophils # (Auto) 0.3, Basophils # (Auto) 0.0, Immature Granulocyte # (Auto) 0.2H, Sodium Level 140, Potassium Level 3.2L, Chloride Level 97L, Carbon Dioxide Level 30, Anion Gap 13, Blood Urea Nitrogen 19H, Creatinine 0.60, Estimat Glomerular Filtration Rate > 60, BUN/Creatinine Ratio 32, Glucose Level 136H, Calcium Level 9.4, Corrected Calcium 9.5, Total Bilirubin 0.2, Aspartate Amino Transf (AST/SGOT) 12, Alanine Aminotransferase (ALT/SGPT) 22, Alkaline Phosphatase 59, Total Protein 6.7, Albumin 3.9 02/06/20 06:03: White Blood Count 8.9, Red Blood Count 4.74, Hemoglobin 13.2, Hematocrit 40, Mean Corpuscular Volume 84, Mean Corpuscular Hemoglobin 28, Mean Corpuscular Hemoglobin Concent 33, Red Cell Distribution Width 13.3, Platelet Count 241, Mean Platelet Volume 9.9, Immature Granulocyte % (Auto) 2, Neutrophils (%) (Auto) 69, Lymphocytes (%) (Auto) 20, Monocytes (%) (Auto) 8, Eosinophils (%) (Auto) 0, Basophils (%) (Auto) 0, Neutrophils # (Auto) 6.2, Lymphocytes # (Auto) 1.8, Monocytes # (Auto) 0.7, Eosinophils # (Auto) 0.0, Basophils # (Auto) 0.0, Immature Granulocyte # (Auto) 0.2H, Sodium Level 137, Potassium Level 4.1, Chloride Level 97L, Carbon Dioxide Level 28, Anion Gap 12, Blood Urea Nitrogen 15, Creatinine 0.68, Estimat Glomerular Filtration Rate > 60, BUN/Creatinine Ratio 22, Glucose Level 218H, Calcium Level 8.4L, Corrected Calcium 8.9, Total B ilirubin 0.3, Aspartate Amino Transf (AST/SGOT) 12, Alanine Aminotransferase (ALT/SGPT) 25, Alkaline Phosphatase 54, Total Protein 6.1L, Albumin 3.4 Imaging I reviewed the CT scan of her lumbar spine and she has spurring anteriorly of several vertebral bodies. Is also some degenerative changes of the facet joints lower lumbar region. No real disc space narrowing. X-rays of the lumbar spine were reviewed as well and show with the above. X-rays of the right hip shows no degenerative changes of the hip joint and no calcification around the greater tuberosity. No fractures. Assessment and Plan Assessment Right hip pain slightly improved Problem List Right sciatica Trochanteric bursitis/tendinitis right hip Plan The above was discussed with the patient. I talked her length about causes for her pain. I think the majority of her problem is sciatica. I explained to her that CT scan does not show some things that it MRI which show but she can't have an MRI because of her bladder stimulator. She may have a disc putting pressure on 1 of the nerve roots that may not be seen with a CT scan without contrast. It doesn't sound like she had really much of that twist or jolt but she could have just a stretch injury to the sciatic nerve. I think she does have some trochanteric bursitis/tendinitis as well. Again I don't see anything in the hip joint but he can have a synovitis from viral causes and she does have a history of positive COVID in the past. As far as treatment she is on Ace for past DVT/pulmonary emboli. I think s he benefit from an anti-inflammatory and Celebrex is really the only one that you can take that safe but I still tell my patients to be careful taking it with signs of bleeding. We could try her on a Medrol Dosepak and she is interested in proceeding. I talked to Dr. Pfeiffer and she thought a Medrol Dosepak would be a good treatment as well. She continues with problems then we can have her follow that up with Celebrex. To Dr. Pfeiffer thought that she could be discharged Ceftin and which is fine with me. She can follow up with me or her nurse practitioner in [place]. If she continues with problems we may have her see one on the spine surgeons or pain management. Final Diagonsis Sciatica right leg Trochanteric bursitis/tendinitis right hip Level of the visit: Level 3 GERMAN ALCALA MD Feb 06, 2020 13:32
--- NOTE | 2020-02-06 14:45 | Physical Therapy Ortho Eval ---
PT Orthopedic Evaluation Type of Surgery No surgery, reports of right hip pain Prior Level of Function Current Living Status: Alone Locomotion (Upon Admit): Independent Subjective Subjective Pt reports onset of right hip pain post stepping off her porch yesterday. Reports her pain got progressively worse until she presented to [facility] ED> Pain was unrelenting, so she was transferred to this hospital. Feeling better today. has started a steroid dose. Reports she plans to go home today and feels she can manage on her own. Entry Into Home: Ramp, Stairs With Railing Objective Objective ROM is WNL Motor Control Motor Control: Motor Control WNL ROM ROM: WFL Strength Strength: WFL Transfer SCALE: Activities may be completed with or without assistive devices. 1-Ltoconczod-zqgygvy completes the activity by him/herself with no assistance from a helper. 5-Set-up or Clean-up Assistance-helper sets up or cleans up; patient completes activity. Vici assists only prior to or following the activity. 4-Supervision or Touching Assistance-helper provides verbal cues and/or touchin g/steadying and/or contact guard assistance as patient completes activity. Assistance may be provided throughout the activity or intermittently. 3-Partial/Moderate Assistance-helper does LESS THAN HALF the effort. Vici lifts, holds or supports trunk or limbs, but provides less than half the effort. 2-Substantial/Maximal Assistance-helper does MORE THAN HALF the effort. Vici lifts or holds trunk or limbs and provides more than half the effort. 0-Rmemhirlt-fgjltm does ALL the effort. Patient does none of the effort to complete the activity. Or, the assistance of 2 or more helpers is required for the patient to complete the activity. If activity was not attempted, code reason: 7-Patient Refused. 9-Not Applicable-not attempted and the patient did not perform the activity before the current illness, exacerbation or injury. 10-Not Attempted due to Environmental Limitations-(lack of equipment, weather restraints, etc.). 88-Not Attempted due to Medical Conditions or Safety Concerns. Transfers (B, C, W/C) (QC): 6 Gait Gait Assistive Device: None Gait (QC): 6 Summary/Comments Pt able to walk in her room without assist or AD; declines use of an AD. Antalgic gait and slow with right foot slightly ER. Reports her hip feels better than it did last night or this morning, although still sore. Pt safe with mobility. Treatment Rendered Treatment: Gait Train Assessment/Goals Goal Time Frame: Safe Ambulation: Yes Reviewed frequent mobiltiy to decrease risk of increase stiffness/soreness. Pt verabalize understanding. Educated her to follow with her physician as needed and she may benefit from skilled outpatient PT services if her pain does not resolve Plan Treatment Duration: 1-3 days Visits Per Week: 1-3 PT/Family Agrees to Plan: Yes Time Time In: 1420 Time Out: 1444 Total Billed Treatment Time: 24 Billed Treatment Time visit EVM 15 GT 9 SHAYAN JOHNSTON PT Feb 06, 2020 14:45
[2020-02-06] MEDS ORDERED: METH4TAB10 PO (14:50)
--- NOTE | 2020-02-06 14:51 | Discharge Summary ---
Discharge Summary Hospital Course Was the Problem List Reviewed?: Yes Problems/Dx: (1) Sciatica, right side (2) Other bursitis of hip, right hip Hospital Course Date of Admission: Feb 05, 2020 at 17:44 Admission Diagnosis : Family Physician/Provider: Clarissa Clemens Aprn Date of Discharge: 02/06/20 Discharge Diagnosis: right sided sciatica, right hip bursitis Hospital Course: see H&P Labs and Pending Lab Test: Laboratory Tests 02/06/20 06:03: White Blood Count 8.9, Red Blood Count 4.74, Hemoglobin 13.2, Hematocrit 40, Mean Corpuscular Volume 84, Mean Corpuscular Hemoglobin 28, Mean Corpuscular Hemoglobin Concent 33, Red Cell Distribution Width 13.3, Platelet Count 241, Mean Platelet Volume 9.9, Immature Granulocyte % (Auto) 2, Neutrophils (%) (Auto) 69, Lymphocytes (%) (Auto) 20, Monocytes (%) (Auto) 8, Eosinophils (%) (Auto) 0, Basophils (%) (Auto) 0, Neutrophils # (Auto) 6.2, Lymphocytes # (Auto) 1.8, Monocytes # (Auto) 0.7, Eosinophils # (Auto) 0.0, Basophils # (Auto) 0.0, Immature Granulocyte # (Auto) 0.2H, Sodium Level 137, Potassium Level 4.1, Chloride Level 97L, Carbon Dioxide Level 28, Anion Gap 12, Blood Urea Nitrogen 15, Creatinine 0.68, Estimat Glomerular Filtration Rate > 60, BUN/Creatinine Ratio 22, Glucose Level 218H, Calcium Level 8.4L, Corrected Calcium 8.9, Total Bilirubin 0.3, Aspartate Amino Transf (AST/SGOT) 12, Alanine Aminotransferase (A LT/SGPT) 25, Alkaline Phosphatase 54, Total Protein 6.1L, Albumin 3.4 Home Meds Active Methylprednisolone Dose Pack (Methylprednisolone) 4 Mg Tab.ds.pk 4 Mg PO UD 6 Days PER DOSE PACK INSTRUCTIONS Reported Tylenol Extra Strength (Acetaminophen) 500 Mg Tablet 1,000 Mg PO Q8H PRN Cyclobenzaprine HCl 10 Mg Tablet 10 Mg PO TID PRN Tramadol HCl 50 Mg Tablet 50 Mg PO Q6H PRN Alprazolam 0.5 Mg Tablet 0.5 Mg PO BID PRN Isosorbide Mononitrate ER (Isosorbide Mononitrate) 30 Mg Tab.er.24h 30 Mg PO DAILY Hydrochlorothiazide 25 Mg Tablet 25 Mg PO DAILY Fluvoxamine Maleate 100 Mg Tablet 100 Mg PO BID Losartan Potassium 50 Mg Tablet 50 Mg PO HS Venlafaxine HCl ER (Venlafaxine HCl) 150 Mg Cap.er.24h 150 Mg PO HS TAKES 75MG +150MG TO EQUAL 225MG Venlafaxine HCl ER (Venlafaxine HCl) 75 Mg Cap.er.24h 75 Mg PO HS TAKES 75MG +150MG TO EQUAL 225MG Atenolol 50 Mg Tablet 50 Mg PO HS Phentermine HCl 37.5 Mg Tablet 37.5 Mg PO DAILY PRN Lovastatin 10 Mg Tablet 10 Mg PO HS Ozempic (Semaglutide) 1 Mg/0.75 Ml Pen.injctr 1 Mg INJ TUESDAY Xarelto (Rivaroxaban) 20 Mg Tablet 20 Mg PO HS Metformin HCl 1,000 Mg Tablet 1,000 Mg PO BID Assessment/Pt Instructions CHC 1 week Discharge Planning: <30 minutes discharge planning Discharge Instructions Discharge Diet: No Restrictions Discharge Physical Examination Vital Signs Vital Signs Date Time Temp Pulse Resp B/P (MAP) Pulse Ox O2 Delivery O2 Flow Rate FiO2 02/06/20 11:38 35.9 67 17 128/81 (97) 100 Room Air General Appearance: No Apparent Distress, WD/WN, Chronically ill, Obese Allergies: Coded Allergies: No Known Drug Allergies (Unverified , 01/27/20) Discharge Summary Date of Admission Feb 05, 2020 at 17:44 Date of Discharge Discharge Date: Feb 06, 2020 Clinical Quality Measures DVT/VTE Risk/Contraindication: Risk Factor Score Per Nursin RFS Level Per Nursing on Admit: 4+=Very High LYDIA ZARAGOZA DO Feb 06, 2020 14:51
--- NOTE | 2020-02-06 14:53 | NUR ---
RD ASSESSMENT PMHx: hypercholesterolemia; HTN; DM; PT INTERACTION: Pt was awake and pleasant during nutrition assessment. Pt states current appetite is "fine." Note pt has been served 3meals, but no percentages have been recorded, per chart review. Pt states following a low-CHO diet at home, and has no issues with chewing/swallowing food. Pt states no recent issues with nausea, vomiting, constipation, or diarrhea, and that her last BM was 02/04. Note pt currently on bowel regimen of senna BID, per chart review. Pt states recent wt changes as "attempting to lose." Note unable to determine recent wt hx, per chart review. Pt states current DM management is good, and that her recent HbA1c was 5.5 (1mon ago). Note unable to determine recent HbA1c, per chart review. ABNORMAL NUTRITION-RELATED LAB VALUES LOW: Cl 97; Ca 8.4; Pro 6.1; HIGH: glu 218; Est. kcal needs: 2508-8128 kcal | 15-18 kcal/kg Est. Pro needs: 94-117 g Pro | 0.8-1.0 g Pro/kg PES STATEMENT: Given current appetite, no nutrition diagnosis at this time (NO-1.1). INTERVENTION: Would recommend switching pt to consistent CHO diet, as pt has hx of DM. Discussed and provided education on DM management. Briefly discussed CHO counting and smartphone applications. Pt verbalized understanding of information presented and appears confident to follow suggestions. Will continue to follow and reassess as pt needs, intake, and status change. Oscar Macias, MS RD LD [phone] cell
[2020-02-06 16:30] VITALS: BP 128/81
[2020-02-06] MEDS ORDERED: RIVAROXABAN 20 MG TABLET (XARELTO) PO SCH (17:00)
== END 2020-02-06 16:30 | disposition home or self-care (01) ==
LOC: EDUNIT# 11:52 → ER FS 11:53 → 4TH 17:44 → INTOOBSV 17:44
PROVIDERS: ADMIT Internal Medicine; ATTEND Internal Medicine
DX: M54.31 Sciatica, right side (principal); M70.71 Other bursitis of hip, right hip; I26.99 Other pulmonary embolism without acute cor pulmonale; I10 Essential (primary) hypertension; E78.00 Pure hypercholesterolemia, unspecified; E11.9 Type 2 diabetes mellitus without complications; F41.9 Anxiety disorder, unspecified; E78.5 Hyperlipidemia, unspecified; E66.9 Obesity, unspecified; Z68.41 Body mass index [BMI] 40.0-44.9, adult; U07.1 COVID-19; Z79.899 Other long term (current) drug therapy; Z90.710 Acquired absence of both cervix and uterus
CPT/HCPCS: 36415; 72100; 72131; 73502; 80053 ×2; 85025 ×2; 96372; 96374; 96375; 97116; 97162; 97165; 99282; G0378

== ENCOUNTER 2021-03-05 12:26 | Emergency (ER) | payer BC ==
[~2021-03-05] VITALS: Ht 162 cm; Wt 112.0 kg
[~2021-03-05 12:26] MED LIST changes: +ACET-2267 PO; +ACHD5005 PO; +CYCL10TA25 PO; -CYCL10TA9 PO; +FLUV100T21 PO; -FLUV100T3 PO; -ISOS30TA3 PO; +ISOS30TA82 PO; +METH4TAB10 PO; -PHEN37.53 PO; +PHEN37.58 PO; +TRAM50TA3 PO
--- NOTE | 2021-03-05 12:30 | ED Back Pain ---
General Stated Complaint: LT GROIN/BACK PAIN History of Present Illness Date Seen by Provider: Mar 05, 2021 Time Seen by Provider: 12:30 Initial Comments 50-year-old female presents with left groin and flank pain. Patient reports that started just a little bit ago. She reports that she is recently was treated with concerns for UTI because of some hematuria. She also reports that she is had a CAT scan in the past that showed she had a kidney stone up in her left kidney. Patient presents today because of the discomfort. She has some mild nausea but no vomiting. No reports of fevers chills diarrhea. Allergies and Home Medications Allergies Coded Allergies: No Known Drug Allergies (Unverified , 01/27/20) Patient Home Medication List Home Medication List Reviewed: Yes Acetaminophen (Tylenol Extra Strength) 500 Mg Tablet, 1,000 MG PO Q8H PRN for PAIN-MILD (1-4), (Reported) Entered as Reported by: BARBIE GARIBAY on 02/06/20 112 Alprazolam (Alprazolam) 0.5 Mg Tablet, 0.5 MG PO BID PRN for ANXIETY, (Reported) Entered as Reported by: KELLI GUERRIER on 01/27/20 1325 Atenolol (Atenolol) 50 Mg Tablet, 50 MG PO HS, (Reported) Entered as Reported by: KELLI GUERRIER on 01/27/20 1325 Cyclobenzaprine HCl (Cyclobenzaprine HCl) 10 Mg Tablet, 10 MG PO TID PRN for MUSCLE CRAMPS, (Reported) Entered as Reported by: BARBIE GARIBAY on 02/06/20 1122 Fluvoxamine Maleate (Fluvoxamine Maleate) 100 Mg Tablet, 100 MG PO BID, (Rep orted) Entered as Reported by: KELLI GUERRIER on 01/27/20 1325 Hydrochlorothiazide (Hydrochlorothiazide) 25 Mg Tablet, 25 MG PO DAILY, (Reported) Entered as Reported by: KELLI GUERRIER on 01/27/20 1325 Isosorbide Mononitrate (Isosorbide Mononitrate ER) 30 Mg Tab.er.24h, 30 MG PO DAILY, (Reported) Entered as Reported by: KELLI GUERRIER on 01/27/20 1325 Losartan Potassium (Losartan Potassium) 50 Mg Tablet, 50 MG PO HS, (Reported) Entered as Reported by: KELLI GUERRIER on 01/27/20 132 Lovastatin (Lovastatin) 10 Mg Tablet, 10 MG PO HS, (Reported) Entered as Reported by: KELLI GUERRIER on 01/27/20 132 Metformin HCl (Metformin HCl) 1,000 Mg Tablet, 1,000 MG PO BID, (Reported) Entered as Reported by: KELLI GUERRIRE on 01/27/20 132 Methylprednisolone (Methylprednisolone Dose Pack) 4 Mg Tab.ds.pk, 4 MG PO UD Prescribed by: LYDIA ZARAGOZA on 02/06/20 1450 Phentermine HCl (Phentermine HCl) 37.5 Mg Tablet, 37.5 MG PO DAILY PRN for APPETITE SUPPRESSION, (Reported) Entered as Reported by: KELLI GUERRIER on 01/27/20 132 Rivaroxaban (Xarelto) 20 Mg Tablet, 20 MG PO HS, (Reported) Entered as Reported by: KELLI GUERRIER on 01/27/20 132 Semaglutide (Ozempic) 1 Mg/0.75 Ml Pen.injctr, 1 MG INJ TUESDAY, (Reported) Entered as Reported by: KELLI GUERRIER on 01/27/20 132 Tramadol HCl (Tramadol HCl) 50 Mg Tablet, 50 MG PO Q6H PRN for PAIN-MODERATE (5- 7), (Reported) Entered as Reported by: BARBIE GARIBAY on 02/06/20 1122 Venlafaxine HCl (Venlafaxine HCl ER) 75 Mg Cap.er.24h, 75 MG PO HS, (Reported) Entered as Reported by: KELLI GUERRIER on 01/27/20 132 Venlafaxine HCl (Venlafaxine HCl ER) 150 Mg Cap.er.24h, 150 MG PO HS, (Reported) Entered as Reported by: KELLI GUERRIER on 01/27/20 132 Review of Systems Constitutional: No chills, No fever Respiratory: No cough, No short of breath Cardiovascular: No chest pain Gastrointestinal: abdominal pain; No constipation, No diarrhea; nausea; No vomiting Genitourinary: see HPI, hematuria Musculoskeletal: back pain Skin: no symptoms reported Psychiatric/Neurological: No Symptoms Reported Past Prwaqzk-Ompodg-Ivxtgc Hx Seasonal Allergies Seasonal Allergies: No Past Medical History Surgeries: Yes (Foot surgery, partial hysterectomy) Section, Gallbladder, Hysterectomy, Orthopedic Respiratory: Yes (PE approx 15 yrs ago, on Xarelto) Pulmonary Embolism Cardiac: Yes High Cholesterol, Hypertension 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 oz. kg; 44.36 BMI Method: General Appearance: No Apparent Distress, WD/WN Cardiovascular: Regular Rate, Rhythm, No Edema Respiratory: Lungs Clear, Normal Breath Sounds Gastrointestinal: Soft, Tenderness (Mild tenderness left groin) Back: CVA Tenderness (L) (Mild) Extremity: Normal Capillary Refill, Normal Inspection, Normal Range of Motion Neurologic/Psychiatric: Alert, Oriented x3, No Motor/Sensory Deficits, Normal Mood/Affect, coil inspector II-XII Norm as Tested Skin: Normal Color, Warm/Dry Progress/Results/Core Measures Results/Orders Lab Results Laboratory Tests Test 03/05/21 12:30 03/05/21 12:41 Range/Units Urine Color YELLOW Urine Clarity CLEAR Urine pH 6.0 5-9 Urine Specific [place] 1.020 1.016-1.022 Urine Protein NEGATIVE NEGATIVE Urine Glucose (UA) NEGATIVE NEGATIVE Urine Ketones NEGATIVE NEGATIVE Urine Nitrite NEGATIVE NEGATIVE Urine Bilirubin NEGATIVE NEGATIVE Urine Urobilinogen 0.2 < = 1.0 MG/DL Urine Leukocyte Esterase NEGATIVE NEGATIVE Urine RBC (Auto) 1+ H NEGATIVE Urine RBC 0-2 /HPF Urine WBC RARE /HPF Urine Squamous Epithelial Cells RARE /HPF Urine Crystals NONE /LPF Urine Bacteria TRACE /HPF Urine Casts NONE /LPF Urine Mucus NEGATIVE /LPF Urine Culture Indicated NO White Blood Count 10.0 4.3-11.0 10^3/uL Red Blood Count 5.03 3.80-5.11 10^6/uL Hemoglobin 14.2 11.5-16.0 g/dL Hematocrit 43 35-52 % Mean Corpuscular Volume 85 80-99 fL Mean Corpuscular Hemoglobin 28 25-34 pg Mean Corpuscular Hemoglobin Concent 33 32-36 g/dL Red Cell Distribution Width 13.3 10.0-14.5 % Platelet Count 257 130-400 10^3/uL Mean Platelet Volume 9.3 9.0-12.2 fL Immature Granulocyte % (Auto) 1 % Neutrophils (%) (Auto) 66 42-75 % Lymphocytes (%) (Auto) 23 12-44 % Monocytes (%) (Auto) 7 0-12 % Eosinophils (%) (Auto) 3 0-10 % Basophils (%) (Auto) 1 0-10 % Neutrophils # (Auto) 6.5 1.8-7.8 X 10^3 Lymphocytes # (Auto) 2.3 1.0-4.0 X 10^3 Monocytes # (Auto) 0.7 0.0-1.0 X 10^3 Eosinophils # (Auto) 0.3 0.0-0.3 10^3/uL Basophils # (Auto) 0.1 0.0-0.1 10^3/uL Immature Granulocyte # (Auto) 0.1 0.0-0.1 10^3/uL Sodium Level 137 135-145 MMOL/L Potassium Level 3.5 L 3.6-5.0 MMOL/L Chloride Level 98 98-107 MMOL/L Carbon Dioxide Level 27 21-32 MMOL/L Anion Gap 12 5-14 MMOL/L Blood Urea Nitrogen 16 7-18 MG/DL Creatinine 0.58 L 0.60-1.30 MG/DL Estimat Glomerular Filtration Rate 110 BUN/Creatinine Ratio 28 Glucose Level 172 H 70-105 MG/DL Calcium Level 9.5 8.5-10.1 MG/DL Corrected Calcium 9.3 8.5-10.1 MG/DL Total Bilirubin 0.6 0.1-1.0 MG/DL Aspartate Amino Transf (AST/SGOT) 16 5-34 U/L Alanine Aminotransferase (ALT/SGPT) 28 0-55 U/L Alkaline Phosphatase 80 40-136 U/L Total Protein 7.7 6.4-8.2 GM/DL Albumin 4.2 3.2-4.5 GM/DL My Orders Orders - TERRAZAS,RIC L DO Cbc With Automated Diff (03/05/21 12:38) Comprehensive Metabolic Panel (03/05/21 12:38) Ua Culture If Indicated (03/05/21 12:38) Ct Abdomen/Pelvis Wo (03/05/21 12:38) Ketorolac Injection (Toradol Injection) (03/05/21 12:40) Metoclopramide Injection (Reglan Injecti (03/05/21 12:40) Vital Signs/I&O 03/05/21 12:29 Temp 36.2 Pulse 90 Resp 14 B/P (MAP) 184/89 (120) Pulse Ox 98 O2 Delivery Room Air Progress Progress Note : Progress Note Patient with negative labs and, no acute findings on CT. Patient still has some mild hematuria. pt should follow up with her pcp for further outpt evalution. Diagnostic Imaging Diagonstic Imaging: CT Plain Films/CT/US/NM/MRI: abdomen, pelvis Comments CT ABDOMEN/PELVIS WO PROCEDURE: CT abdomen and pelvis without contrast. TECHNIQUE: Multiple contiguous axial images were obtained through the abdomen and pelvis without the use of intravenous contrast. Auto Exposure Controls were utilized during the CT exam to meet ALARA standards for radiation dose reduction. INDICATION: Left flank pain Unenhanced images of liver and spleen reveal no focal abnormality. There is mild splenomegaly. Gallbladder surgically absent and there may be calcified granuloma in the medial aspect of the spleen. There is no biliary ductal dilatation. There is probable diverticulum arising from 3rd portion of the duodenum. No adrenal gland lesion is identified. 0.8 cm calculus is seen in the inferior pole of the right kidney without hydronephrosis. Left kidney is unremarkable on the noncontrasted images. There is no evidence of hydronephrosis or hydroureter. No ureteric stone is identified. Urinary bladder is decompressed. There are occasional calcified phleboliths seen bilaterally in the pelvis. No free fluid is seen. May be mild mural thickening in the otherwise decompressed sigmoid colon. This could be due to smooth muscle hyperplasia. There is no evidence of localized inflammation or organized fluid collection. Note is made of stimulator device in the subcutaneous tissues of the right buttock with lead extending to the region of sacral plexus. IMPRESSION: 1. Nonobstructing 0.8 cm right lower pole renal calculus. There is no evidence of obstructive uropathy. 2. Mural thickening of the sigmoid colon may be due to smooth muscle hyperplasia. There is no evidence of surrounding inflammation or perforation. Departure Impression Primary Impression: Left groin pain Disposition: HOME, SELF-CARE Condition: Stable Departure-Patient Inst. Referrals: DAKOTA AU APRN (PCP) Primary Care Physician [facility] (Family) Primary Care Physician Patient Instructions: Abdominal Pain, Adult ED, Groin Strain (DC) Add. Discharge Instructions: Follow up with your pcp for further evaluation RIC TERRAZAS DO Mar 05, 2021 12:30
--- OUTSIDE RECORDS SUMMARY | 2021-03-05 12:31 | XMS REPORT | Clinical Summary ---
Author Author [facility] Organization [facility] Address Unknown Phone Unavailable Care Team Providers Care Evp Managing Director Name Role Phone Unknown, Unknown Md PCP Unavailable Source Comments Some departments are not documenting in the electronic medical record. If you d o not see the information that you expected, contact Release of Information in [facility] Information Management department at [phone] for further assistan ce in locating additional records.[facility] Allergies Not on File Medications Not on file Active Problems Not on file Social History Date Tobacco Use Types Packs/Day Years Used Never Assessed Sex Assigned at Date Recorded Not on file Last Filed Vital Signs Not on file Plan of Treatment Health Maintenance Due Date Last Done Comments HIV SCREENING 1985 DTAP/TDAP VACCINES (1 - 1988 Tdap) HEPATITIS C SCREENING 1988 PHYSICAL (COMPREHENSIVE) 1988 EXAM CERVICAL CANCER SCREENING 12/05/1991 BREAST CANCER SCREENING 2010 INFLUENZA VACCINE 10/05/2020 COLORECTAL CANCER 2020 SCREENING SHINGLES RECOMBINANT 2020 VACCINE (1 of 2) Results Not on filefrom Last 3 Months Care Teams Start Date End Date Evp Managing Director Relationship Specialty 07/12/19 Unknown, Unknown, PCP - General
[2021-03-05] MEDS ORDERED: KETOROLAC 30 MG/ML VIAL IVP STA (12:40)
[2021-03-05] MEDS ORDERED: METOCLOPRAMIDE INJ 10 MG/2 ML (REGLAN) IVP STA (12:40)
[2021-03-05 12:47] LABS: BILIRUBIN,URINE NEGATIVE (NEGATIVE); CLARITY,URINE CLEAR; COLOR,URINE YELLOW; GLUCOSE, URINE (UA) NEGATIVE (NEGATIVE); KETONES,URINE NEGATIVE (NEGATIVE); LEUKOCYTE ESTERASE ,URINE NEGATIVE (NEGATIVE); NITRITE,URINE NEGATIVE (NEGATIVE); PROTEIN,URINE NEGATIVE (NEGATIVE)
[2021-03-05 12:57] LABS: RBC,URINE 0-2 /HPF; WBC,URINE RARE /HPF
[2021-03-05 12:58] LABS: BACTERIA,URINE TRACE /HPF; SQUAMOUS EPITHELIAL CELL,UR RARE /HPF
[2021-03-05 13:00] LABS: EOSINOPHILS % (AUTO) 3 % (0-10); HEMATOCRIT 43 % (35-52); HEMOGLOBIN 14.2 g/dL (11.5-16.0); LYMPHOCYTES % (AUTO) 23 % (12-44); MEAN CORPUSCULAR HEMOGLOBIN 28 pg (25-34); MEAN CORPUSCULAR HGB CONC 33 g/dL (32-36); MEAN CORPUSCULAR VOLUME 85 fL (80-99); MEAN PLATELET VOLUME 9.3 fL (9.0-12.2); MONOCYTES % (AUTO) 7 % (0-12); NEUTROPHILS % (AUTO) 66 % (42-75); PLATELET COUNT 257 10^3/uL (130-400)
[2021-03-05 13:01] LABS: BASOPHILS # (AUTO) 0.1 10^3/uL (0.0-0.1); BASOPHILS % (AUTO) 1 % (0-10); EOSINOPHILS # (AUTO) 0.3 10^3/uL (0.0-0.3); LYMPHOCYTES # (AUTO) 2.3 X 10^3 (1.0-4.0); MONOCYTES # (AUTO) 0.7 X 10^3 (0.0-1.0); NEUTROPHILS # (AUTO) 6.5 X 10^3 (1.8-7.8)
--- NOTE | 2021-03-05 13:04 | Diagnostic Imaging Report ---
PROCEDURE: CT abdomen and pelvis without contrast. TECHNIQUE: Multiple contiguous axial images were obtained through the abdomen and pelvis without the use of intravenous contrast. Auto Exposure Controls were utilized during the CT exam to meet ALARA standards for radiation dose reduction. INDICATION: Left flank pain Unenhanced images of liver and spleen reveal no focal abnormality. There is mild splenomegaly. Gallbladder surgically absent and there may be calcified granuloma in the medial aspect of the spleen. There is no biliary ductal dilatation. There is probable diverticulum arising from 3rd portion of the duodenum. No adrenal gland lesion is identified. 0.8 cm calculus is seen in the inferior pole of the right kidney without hydronephrosis. Left kidney is unremarkable on the noncontrasted images. There is no evidence of hydronephrosis or hydroureter. No ureteric stone is identified. Urinary bladder is decompressed. There are occasional calcified phleboliths seen bilaterally in the pelvis. No free fluid is seen. May be mild mural thickening in the otherwise decompressed sigmoid colon. This could be due to smooth muscle hyperplasia. There is no evidence of localized inflammation or organized fluid collection. Note is made of stimulator device in the subcutaneous tissues of the right buttock with lead extending to the region of sacral plexus. IMPRESSION: 1. Nonobstructing 0.8 cm right lower pole renal calculus. There is no evidence of obstructive uropathy. 2. Mural thickening of the sigmoid colon may be due to smooth muscle hyperplasia. There is no evidence of surrounding inflammation or perforation. Dictated by: Dictated on workstation # [id number]
[2021-03-05 13:11] LABS: POTASSIUM 3.5 MMOL/L (3.6-5.0)
[2021-03-05 13:12] LABS: ALBUMIN 4.2 GM/DL (3.2-4.5); BILIRUBIN,TOTAL 0.6 MG/DL (0.1-1.0); CALCIUM 9.5 MG/DL (8.5-10.1); CREATININE SERUM 0.58 MG/DL (0.60-1.30); TOTAL PROTEIN 7.7 GM/DL (6.4-8.2)
[2021-03-05 13:34] VITALS: BP 184/89
== END 2021-03-05 13:34 | disposition home or self-care (01) ==
LOC: EDUNIT# 12:26 → ER FS 12:28
DX: R10.32 Left lower quadrant pain (principal); I10 Essential (primary) hypertension; F41.9 Anxiety disorder, unspecified; E11.9 Type 2 diabetes mellitus without complications; E78.00 Pure hypercholesterolemia, unspecified; Z86.711 Personal history of pulmonary embolism; Z79.84 Long term (current) use of oral hypoglycemic drugs; Z79.01 Long term (current) use of anticoagulants; Z79.899 Other long term (current) drug therapy
CPT/HCPCS: 36415; 74176; 80053; 81000; 85025

== ENCOUNTER 2021-06-18 16:50 | Emergency (ER) | payer BC ==
[~2021-06-18] VITALS: Ht 162 cm; Wt 115.0 kg
[~2021-06-18 16:50] MED LIST changes: +METH-732 PO; +NITR100C PO; +OXYC1TAB11 PO; +PHEN-827 PO; +POTA-51 PO
[2021-06-18] MEDS ORDERED: FAMOTIDINE 20MG/2ML IV (PEPCID) IV STA (16:57)
--- NOTE | 2021-06-18 16:57 | ED Chest Pain ---
General Stated Complaint: CP History of Present Illness Date Seen by Provider: Jun 18, 2021 Time Seen by Provider: 16:54 Initial Comments 50-year-old female presents with epigastric/chest pain. Started about 1/2-hour ago while she was in a meeting. Located in her epigastric/lower sternum radiates to her back and a little bit up to her right side of her neck feels achy. He got some mild right upper quadrant pain. She reports she has a history of blood clots now the last time she felt this way. She reports that she is got some bruising down in her groin from a groin injury and having a groin tear with a hematoma that was ultrasounded on 06/12/2021. She denies any shortness of breath, diaphoresis, nausea or vomiting at this time. Allergies and Home Medications Allergies Coded Allergies: No Known Drug Allergies (Unverified , 01/27/20) Patient Home Medication List Home Medication List Reviewed: Yes Acetaminophen (Tylenol Extra Strength) 500 Mg Tablet, 1,000 MG PO Q8H PRN for PAIN-MILD (1-4), (Reported) Entered as Reported by: BARBIE GARIBAY on 02/06/20 1122 Alprazolam (Alprazolam) 0.5 Mg Tablet, 0.5 MG PO BID PRN for ANXIETY, (Reported) Entered as Reported by: KELLI GUERRIER on 01/27/20 1325 Atenolol (Atenolol) 50 Mg Tablet, 50 MG PO HS, (Reported) Entered as Reported by: KELLI GUERRIER on 01/27/20 1325 Buspirone HCl (Buspirone HCl) 10 Mg Tablet, 10 MG PO TID, (Reported) Entered as Reported by: KELLI GUERRIER on 06/18/21 1846 Last Action: New Order Cyclobenzaprine HCl (Cyclobenzaprine HCl) 10 Mg Tablet, 10 MG PO TID PRN for MUSCLE CRAMPS, (Reported) Entered as Reported by: BARBIE GARIBAY on 02/06/20 1122 Fluvoxamine Maleate (Fluvoxamine Maleate) 100 Mg Tablet, 100 MG PO BID, (Reported) Entered as Reported by: KELLI GUERRIER on 01/27/20 1325 Hydrochlorothiazide (Hydrochlorothiazide) 25 Mg Tablet, 25 MG PO DAILY, (Reported) Entered as Reported by: KELLI GUERRIER on 01/27/20 132 Isosorbide Mononitrate (Isosorbide Mononitrate ER) 30 Mg Tab.er.24h, 30 MG PO DAILY, (Reported) Entered as Reported by: KELLI GUERRIER on 01/27/20 132 Losartan Potassium (Losartan Potassium) 50 Mg Tablet, 50 MG PO HS, (Reported) Entered as Reported by: KELLI GUERRIER on 01/27/20 132 Lovastatin (Lovastatin) 10 Mg Tablet, 10 MG PO HS, (Reported) Entered as Reported by: KELLI GUERRIER on 01/27/20 132 Metformin HCl (Metformin HCl) 1,000 Mg Tablet, 1,000 MG PO BID, (Reported) Entered as Reported by: KELLI GUERRIER on 01/27/20 132 Methocarbamol (Methocarbamol) 750 Mg Tablet, 1,500 MG PO TID PRN for MUSCLE SPASMS Prescribed by: BAM LOVE on 06/12/211739 Methylprednisolone (Methylprednisolone Dose Pack) 4 Mg Tab.ds.pk, 4 MG PO UD Prescribed by: LYDIA ZARAGOZA on 02/06/20 1450 Nitrofurantoin Macrocrystal (Nitrofurantoin) 100 Mg Capsule, 100 MG PO BID Prescribed by: BAM LOVE on 06/12/211739 Oxycodone HCl/Acetaminophen (Oxycodone-Acetaminophen 5-325) 1 Each Tablet, 1 EACH PO Q4H PRN for PAIN-SEVERE (8-10) Prescribed by: BAM LOVE on 06/12/211740 Phenazopyridine HCl (Phenazopyridine HCl) 200 Mg Tablet, 200 MG PO TID Prescribed by: BAM LOVE on 06/12/211739 Phentermine HCl (Phentermine HCl) 37.5 Mg Tablet, 37.5 MG PO DAILY PRN for APPETITE SUPPRESSION, (Reported) Entered as Reported by: KELLI GUERRIER on 01/27/20 132 Potassium Chloride (Potassium Chloride) 20 Meq Tablet.er, 20 MEQ PO DAILY Prescribed by: BAM LOVE on 06/12/211739 Rivaroxaban (Xarelto) 20 Mg Tablet, 20 MG PO HS, (Reported) Entered as Reported by: KELLI GUERRIER on 01/27/20 1325 Semaglutide (Ozempic) 1 Mg/0.75 Ml Pen.injctr, 1 MG INJ TUESDAY, (Reported) Entered as Reported by: KELLI GUERRIER on 01/27/20 1325 Tramadol HCl (Tramadol HCl) 50 Mg Tablet, 50 MG PO Q6H PRN for PAIN-MODERATE (5- 7), (Reported) Entered as Reported by: BARBIE GARIBAY on 02/06/20 1122 Venlafaxine HCl (Venlafaxine HCl ER) 75 Mg Cap.er.24h, 75 MG PO HS, (Reported) Entered as Reported by: KELLI GUERRIER on 01/27/20 1325 Venlafaxine HCl (Venlafaxine HCl ER) 150 Mg Cap.er.24h, 150 MG PO HS, (Reported) Entered as Reported by: KELLI GUERRIER on 01/27/20 1325 Review of Systems Review of Systems Constitutional: No chills, No dizziness, No fever EENTM: See HPI Respiratory: Denies Cough, Denies Shortness of Air Cardiovascular: See HPI, Chest Pain; Denies Irregular Heart Rate, Denies Palpitations, Denies Syncope Gastrointestinal: See HPI; Denies Nausea, Denies Vomiting Musculoskeletal: see HPI Skin: see HPI Psychiatric/Neurological: No Symptoms Reported Endocrine: No Symptoms Reported Hematologic/Lymphatic: No Symptoms Reported Past Axpqunr-Ksuvxy-Fdcgat Hx Immunizations Up To Date First/Initial COVID19 Vaccinat: June 2020 Second COVID19 Vaccination Cheikh: June 2020 Seasonal Allergies Seasonal Allergies: No Past Medical History Surgery/Hospitalization HX: HTN; Depression; DM: Partial hysterectomy; Bladder stimulator, Pulmonary Embolus Surgeries: Yes (Foot surgery, partial hysterectomy) Section, Gallbladder, Hysterectomy, Orthopedic Respiratory: Yes (PE approx 15 yrs ago, on Xarelto) Pulmonary Embolism Cardiac: Yes High Cholesterol, Hypertension 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 oz. kg; 44.00 BMI Method: General Appearance: No Apparent Distress, WD/WN, Obese Neck: Non Tender, Supple Respiratory: Lungs Clear, Normal Breath Sounds Cardiovascular: Regular Rate, Rhythm, No Edema Gastrointestinal: Non Tender, Soft Extremity: Normal Capillary Refill, Normal Inspection, Normal Range of Motion Neurologic/Psychiatric: Alert, Oriented x3, No Motor/Sensory Deficits, Normal Mood/Affect, supervisor lamp shades II-XII Norm as Tested Progress/Results/Core Measures Results/Orders Lab Results Laboratory Tests Test 06/18/21 17:00 06/18/21 18:55 Range/Units White Blood Count 9.9 4.3-11.0 10^3/uL Red Blood Count 3.62 L 3.80-5.11 10^6/uL Hemoglobin 10.5 L 11.5-16.0 g/dL Hematocrit 32 L 35-52 % Mean Corpuscular Volume 87 80-99 fL Mean Corpuscular Hemoglobin 29 25-34 pg Mean Corpuscular Hemoglobin Concent 33 32-36 g/dL Red Cell Distribution Width 13.9 10.0-14.5 % Platelet Count 259 130-400 10^3/uL Mean Platelet Volume 9.3 9.0-12.2 fL Immature Granulocyte % (Auto) 1 % Neutrophils (%) (Auto) 59 42-75 % Lymphocytes (%) (Auto) 28 12-44 % Monocytes (%) (Auto) 8 0-12 % Eosinophils (%) (Auto) 4 0-10 % Basophils (%) (Auto) 1 0-10 % Neutrophils # (Auto) 5.8 1.8-7.8 10^3/uL Lymphocytes # (Auto) 2.8 1.0-4.0 10^3/uL Monocytes # (Auto) 0.8 0.0-1.0 10^3/uL Eosinophils # (Auto) 0.4 H 0.0-0.3 10^3/uL Basophils # (Auto) 0.1 0.0-0.1 10^3/uL Immature Granulocyte # (Auto) 0.1 0.0-0.1 10^3/uL Neutrophils % (Manual) % Prothrombin Time 14.2 12.2-14.7 SEC INR Comment 1.1 0.8-1.4 Activated Partial Thromboplast Time 27 24-35 SEC Sodium Level 137 135-145 MMOL/L Potassium Level 3.5 L 3.6-5.0 MMOL/L Chloride Level 99 98-107 MMOL/L Carbon Dioxide Level 28 21-32 MMOL/L Anion Gap 10 5-14 MMOL/L Blood Urea Nitrogen 15 7-18 MG/DL Creatinine 0.63 0.60-1.30 MG/DL Estimat Glomerular Filtration Rate 108 BUN/Creatinine Ratio 24 Glucose Level 193 H 70-105 MG/DL Calcium Level 9.2 8.5-10.1 MG/DL Corrected Calcium 9.3 8.5-10.1 MG/DL Magnesium Level 1.7 1.6-2.4 MG/DL Total Bilirubin 0.6 0.1-1.0 MG/DL Aspartate Amino Transf (AST/SGOT) 13 5-34 U/L Alanine Aminotransferase (ALT/SGPT) 16 0-55 U/L Alkaline Phosphatase 63 40-136 U/L Myoglobin < 21.0 10.0-92.0 NG/ML Troponin I < 0.30 < 0.30 <0.30 NG/ML Pro-B-Type Natriuretic Peptide 103.5 H <75.0 PG/ML Total Protein 6.6 6.4-8.2 GM/DL Albumin 3.9 3.2-4.5 GM/DL Lipase 60 8-78 U/L My Orders Orders - TERRAZAS,RIC L DO Cbc With Automated Diff (06/18/21 16:57) Magnesium (06/18/21 16:57) Chest 1 View Ap/Pa Only (06/18/21 16:57) Ekg Tracing (06/18/21 16:57) Comprehensive Metabolic Panel (06/18/21 16:57) Myoglobin Serum (06/18/21 16:57) Protime With Inr (06/18/21 16:57) Partial Thromboplastin Time (06/18/21 16:57) Monitor-Rhythm Ecg Trace Only (06/18/21 16:57) Lipid Panel (06/19/21 06:00) Aspirin Chewable Tablet (Baby Aspirin Ch (06/18/21 17:00) Ed Iv/Invasive Line Start (06/18/21 16:57) Lipase (06/18/21 16:57) Troponin I Fs (06/18/21 16:57) Probnp Fs (06/18/21 16:57) Famotidine Injection (Pepcid Injection) (06/18/21 16:57) Manual Differential (06/18/21 17:00) Ketorolac Injection (Toradol Injection) (06/18/21 17:46) Troponin I Fs (06/18/21 18:55) Medications Given in ED Current Medications Medications Dose Ordered Sig/Milady Route Start Time Stop Time Status Last Admin Dose Admin Aspirin 324 mg ONCE ONCE PO 06/18/21 17:00 06/18/21 17:01 DC 06/18/21 17:11 324 MG Vital Signs/I&O 06/18/21 06/18/21 17:06 18:03 Temp 37.0 37.0 Pulse 84 Resp 20 B/P (MAP) 127/71 (89) Pulse Ox 100 O2 Delivery Room Air Progress Progress Note : Progress Note Patient with no signs of distress throughout her stay. Patient's pain would be atypical for coronary syndrome. She had 2 - troponins. Her alarm security or surveillance monitor remained sinus throughout the stay. Patient rested comfortably with no signs of discomfort. Patient was recommended follow with her primary care provider as needed return to the ER if symptoms worsen or as needed. She is stable and dis charged Initial ECG Impression Date: Jun 18, 2021 Initial ECG Impression Time: 16:56 Initial ECG Rate: 78 Initial ECG Rhythm: Normal Sinus Initial ECG Intervals: Normal Comment NSR, flattened diffuse t waves, likely body habitus, no acute st elevation or changes Diagnostic Imaging Diagonstic Imaging: Xray Plain Films/CT/US/NM/MRI: chest Comments Date of Exam:06/18/21 CHEST 1 VIEW AP/PA ONLY INDICATION: Chest pain. COMPARISON: 01/27/2020. EXAMINATION: Single view of the chest. FINDINGS: Clear lungs, bilaterally. The heart is normal. There is no pneumothorax but osseous structures are normal. IMPRESSION: Negative chest. Reviewed: Reviewed by Me, Reviewed/Discussed Departure Impression Primary Impression: Acute nonspecific chest pain with low risk of coronary artery disease Disposition: 01 HOME, SELF-CARE Condition: Stable Departure-Patient Inst. Referrals: [facility] (Family) Primary Care Physician DAKOTA AU APRN (PCP) Primary Care Physician Patient Instructions: Chest Pain That Is Not Caused by the Heart (DC) Add. Discharge Instructions: Follow-up with your primary care provider if pain becomes recurrent for further evaluation and cardiology consult Return to the ER as needed RIC TERRAZAS DO Jun 18, 2021 16:57
[2021-06-18] MEDS ORDERED: ASPIRIN 81 MG CHEW (CHILDREN'S ASA) PO ONE (17:00)
[2021-06-18 17:07] LABS: BASOPHILS # (AUTO) 0.1 10^3/uL (0.0-0.1); BASOPHILS % (AUTO) 1 % (0-10); EOSINOPHILS # (AUTO) 0.4 10^3/uL (0.0-0.3); EOSINOPHILS % (AUTO) 4 % (0-10); HEMATOCRIT 32 % (35-52); HEMOGLOBIN 10.5 g/dL (11.5-16.0); LYMPHOCYTES # (AUTO) 2.8 10^3/uL (1.0-4.0); LYMPHOCYTES % (AUTO) 28 % (12-44); MEAN CORPUSCULAR HEMOGLOBIN 29 pg (25-34); MEAN CORPUSCULAR HGB CONC 33 g/dL (32-36); MEAN CORPUSCULAR VOLUME 87 fL (80-99); MEAN PLATELET VOLUME 9.3 fL (9.0-12.2); MONOCYTES # (AUTO) 0.8 10^3/uL (0.0-1.0); MONOCYTES % (AUTO) 8 % (0-12); NEUTROPHILS # (AUTO) 5.8 10^3/uL (1.8-7.8); NEUTROPHILS % (AUTO) 59 % (42-75); PLATELET COUNT 259 10^3/uL (130-400); WHITE BLOOD COUNT 9.9 10^3/uL (4.3-11.0)
--- NOTE | 2021-06-18 17:21 | Diagnostic Imaging Report ---
INDICATION: Chest pain. COMPARISON: 01/27/2020. EXAMINATION: Single view of the chest. FINDINGS: Clear lungs, bilaterally. The heart is normal. There is no pneumothorax but osseous structures are normal. IMPRESSION: Negative chest. Dictated by: Dictated on workstation # [id number]
[2021-06-18 17:26] LABS: INR 1.1 (0.8-1.4); PROTHROMBIN TIME PATIENT 14.2 SEC (12.2-14.7)
[2021-06-18 17:34] LABS: BUN/CREATININE RATIO 24; CARBON DIOXIDE 28 MMOL/L (21-32); CHLORIDE 99 MMOL/L (98-107); CREATININE SERUM 0.63 MG/DL (0.60-1.30); GFR ESTIMATED 108; GLUCOSE 193 MG/DL (70-105); POTASSIUM 3.5 MMOL/L (3.6-5.0); SODIUM 137 MMOL/L (135-145)
[2021-06-18 17:35] LABS: ALANINE AMINOTRANSFERASE 16 U/L (0-55); ALBUMIN 3.9 GM/DL (3.2-4.5); ALKALINE PHOSPHATASE 63 U/L (40-136); BILIRUBIN,TOTAL 0.6 MG/DL (0.1-1.0); CALCIUM 9.2 MG/DL (8.5-10.1); LIPASE 60 U/L (8-78); MAGNESIUM 1.7 MG/DL (1.6-2.4); TOTAL PROTEIN 6.6 GM/DL (6.4-8.2)
[2021-06-18] MEDS ORDERED: KETOROLAC 30 MG/ML VIAL IVP STA (17:46)
[2021-06-18] MEDS ORDERED: BUSP10TA95 PO (18:46)
[2021-06-18 19:24] VITALS: BP 110/67
== END 2021-06-18 19:24 | disposition home or self-care (01) ==
LOC: EDUNIT# 16:50 → ER FS 16:51
DX: R07.89 Other chest pain (principal); E66.9 Obesity, unspecified; Z68.41 Body mass index [BMI] 40.0-44.9, adult
CPT/HCPCS: 36415; 71045; 80053; 83690; 83735; 83874; 83880; 84484; 85007; 85025; 85027; 85610; 85730; 93041

== ENCOUNTER → 2021-09-22 | Outpatient (CLI) | payer BC ==
[~2021-09-22] MED LIST changes: +BUSP10TA95 PO
--- NOTE | 2021-09-22 12:17 | Diagnostic Imaging Report ---
INDICATION: PAIN IN LEFT FOOT COMPARISON: None. FINDINGS: 3 views of the left foot demonstrate no acute fracture or dislocation. There are no focal osseous lesions. There is no soft tissue swelling. Joint spaces are well maintained. No radiopaque foreign bodies are seen. IMPRESSION: No acute fractures or dislocations of the left foot. Dictated by: Dictated on workstation # [id number]
== END ==
LOC: RAD FS 10:58
PROVIDERS: ATTEND Nurse Practitioner
DX: M79.672 Pain in left foot (principal)
CPT/HCPCS: 73630

== ENCOUNTER 2021-10-11 11:48 | Emergency (ER) | payer BC ==
[~2021-10-11] VITALS: Ht 162.5 cm; Wt 114.7 kg
--- NOTE | 2021-10-11 11:53 | ED Abdominal Pain ---
General Chief Complaint: Abdominal/GI Problems Stated Complaint: LOWER RIGHT SIDE PAIN History of Present Illness Date Seen by Provider: Oct 11, 2021 Time Seen by Provider: 11:53 Initial Comments 50-year-old female presents with right lower quadrant pain. She reports pain radiates to her back. That pain started throughout the night and is gotten worse. She reports that earlier this week she had some bloody urine. She has a history of stones but this is a little different. She has some nausea and some diarrhea. No fever or chills. Patient had a stone about 6 months ago that required lithotripsy. She sees Dr. Horowitz in [place] for her care. Allergies and Home Medications Allergies Coded Allergies: No Known Drug Allergies (Unverified , 01/27/20) Patient Home Medication List Home Medication List Reviewed: Yes Acetaminophen (Tylenol Extra Strength) 500 Mg Tablet, 1,000 MG PO Q8H PRN for PAIN-MILD (1-4), (Reported) Entered as Reported by: BARBIE GARIBAY on 02/06/20 1122 Alprazolam (Alprazolam) 0.5 Mg Tablet, 0.5 MG PO BID PRN for ANXIETY, (Reported) Entered as Reported by: KELLI GUERRIER on 01/27/20 1325 Atenolol (Atenolol) 50 Mg Tablet, 50 MG PO HS, (Reported) Entered as Reported by: KELLI GUERRIER on 01/27/20 1325 Buspirone HCl (Buspirone HCl) 10 Mg Tablet, 10 MG PO TID, (Reported) Entered as Reported by: KELLI GUERRIER on 06/18/21 1846 Cyclobenzaprine HCl (Cyclobenzaprine HCl) 10 Mg Tablet, 10 MG PO TID PRN for MUSCLE CRAMPS, (Reported) Entered as Reported by: BARBIE GARIBAY on 02/06/20 1122 Fluvoxamine Maleate (Fluvoxamine Maleate) 100 Mg Tablet, 100 MG PO BID, (Reported) Entered as Reported by: KELLI GUERRIER on 01/27/20 1325 Hydrochlorothiazide (Hydrochlorothiazide) 25 Mg Tablet, 25 MG PO DAILY, (Reported) Entered as Reported by: KELLI GUERRIER on 01/27/20 1325 Isosorbide Mononitrate (Isosorbide Mononitrate ER) 30 Mg Tab.er.24h, 30 MG PO DAILY, (Reported) Entered as Reported by: KELLI GUERRIER on 01/27/20 132 Losartan Potassium (Losartan Potassium) 50 Mg Tablet, 50 MG PO HS, (Reported) Entered as Reported by: KELLI GUERRIER on 01/27/20 132 Lovastatin (Lovastatin) 10 Mg Tablet, 10 MG PO HS, (Reported) Entered as Reported by: KELLI GUERRIER on 01/27/20 132 Metformin HCl (Metformin HCl) 1,000 Mg Tablet, 1,000 MG PO BID, (Reported) Entered as Reported by: KELLI GUERRIER on 01/27/20 132 Methocarbamol (Methocarbamol) 750 Mg Tablet, 1,500 MG PO TID PRN for MUSCLE SPASMS Prescribed by: BAM LOVE on 06/12/211739 Methylprednisolone (Methylprednisolone Dose Pack) 4 Mg Tab.ds.pk, 4 MG PO UD Prescribed by: LYDIA ZARAGOZA on 02/06/20 1450 Nitrofurantoin Macrocrystal (Nitrofurantoin) 100 Mg Capsule, 100 MG PO BID Prescribed by: BAM LOVE on 06/12/211739 Oxycodone HCl/Acetaminophen (Oxycodone-Acetaminophen 5-325) 1 Each Tablet, 1 EACH PO Q4H PRN for PAIN-SEVERE (8-10) Prescribed by: BAM LOVE on 06/12/21 174 Phenazopyridine HCl (Phenazopyridine HCl) 200 Mg Tablet, 200 MG PO TID Prescribed by: BAM LOVE on 06/12/211739 Phentermine HCl (Phentermine HCl) 37.5 Mg Tablet, 37.5 MG PO DAILY PRN for APPETITE SUPPRESSION, (Reported) Entered as Reported by: KELLI GUERRIER on 01/27/20 132 Potassium Chloride (Potassium Chloride) 20 Meq Tablet.er, 20 MEQ PO DAILY Prescribed by: BAM LOVE on 06/12/211739 Rivaroxaban (Xarelto) 20 Mg Tablet, 20 MG PO HS, (Reported) Entered as Reported by: KELLI GUERRIER on 01/27/20 132 Semaglutide (Ozempic) 1 Mg/0.75 Ml Pen.injctr, 1 MG INJ TUESDAY, (Reported) Entered as Reported by: KELLI GUERRIER on 01/27/20 1325 Tramadol HCl (Tramadol HCl) 50 Mg Tablet, 50 MG PO Q6H PRN for PAIN-MODERATE (5- 7), (Reported) Entered as Reported by: BARBIE GARIBAY on 02/06/20 1122 Venlafaxine HCl (Venlafaxine HCl ER) 75 Mg Cap.er.24h, 75 MG PO HS, (Reported) Entered as Reported by: KELLI GUERRIER on 01/27/20 1325 Venlafaxine HCl (Venlafaxine HCl ER) 150 Mg Cap.er.24h, 150 MG PO HS, (Reported) Entered as Reported by: KELLI GUERRIER on 01/27/20 1325 Review of Systems Review of Systems Constitutional: No chills, No fever EENTM: No Symptoms Reported Respiratory: No Symptoms Reported Gastrointestinal: See HPI, Abdominal Pain, Diarrhea, Nausea; Denies Vomiting Genitourinary: Frequency, Flank Pain, Hematuria Musculoskeletal: back pain Skin: no symptoms reported Psychiatric/Neurological: No Symptoms Reported Endocrine: No Symptoms Reported Hematologic/Lymphatic: No Symptoms Reported Past Bktmyqc-Uwfsmn-Evciod Hx Immunizations Up To Date First/Initial COVID19 Vaccinat: June 2020 Second COVID19 Vaccination Cheikh: June 2020 Seasonal Allergies Seasonal Allergies: No Past Medical History Surgery/Hospitalization HX: HTN; Depression; DM: Partial hysterectomy; Bladder stimulator, Pulmonary Embolus Surgeries: Yes (Foot surgery, partial hysterectomy) Section, Gallbladder, Hysterectomy, Orthopedic Respiratory: Yes (PE approx 15 yrs ago, on Xarelto) Pulmonary Embolism Cardiac: Yes High Cholesterol, Hypertension Neurological: No [employer] History: Hysterectomy Genitourinary: No Gastrointestinal: No Musculoskeletal: No Endocrine: Yes (HGB A1C 5.6 in December 2019) Diabetes, Non-Insulin dep HEENT: No Cancer: No Psychosocial: Yes Anxiety Integumentary: Yes (rash to L medial ankle area) Recent Skin Changes Blood Disorders: Yes (had a PE 15 yrs ago) Physical Exam Vital Signs Vital Signs - First Documented 10/11/21 12:00 Temp 36.2 Pulse 87 Resp 16 B/P (MAP) 154/96 (115) Pulse Ox 97 O2 Delivery Room Air Capillary Refill : Height/Weight/BMI Height: '" Weight: lbs. oz. kg; 43.00 BMI Method: General Appearance: WD/WN, no apparent distress HEENT: PERRL/EOMI, pharynx normal Neck: full range of motion Respiratory: lungs clear, normal breath sounds Cardiovascular: normal peripheral pulses, regular rate, rhythm Gastrointestinal: soft; No rebound; tenderness (Right lower quadrant) Back: no vertebral tenderness, CVA tenderness (R) Neurologic/Psychiatric: alert, normal mood/affect, oriented x 3 Skin: normal color, warm/dry Progress/Results/Core Measures Results/Orders Lab Results Laboratory Tests Test 10/11/21 11:52 Range/Units Urine Color YELLOW Urine Clarity CLEAR Urine pH 5.5 5-9 Urine Specific [place] 1.020 1.016-1.022 Urine Protein NEGATIVE NEGATIVE Urine Glucose (UA) NEGATIVE NEGATIVE Urine Ketones NEGATIVE NEGATIVE Urine Nitrite NEGATIVE NEGATIVE Urine Bilirubin NEGATIVE NEGATIVE Urine Urobilinogen 0.2 < = 1.0 MG/DL Urine Leukocyte Esterase NEGATIVE NEGATIVE Urine RBC (Auto) 1+ H NEGATIVE Urine RBC 5-10 H /HPF Urine WBC 10-25 H /HPF Urine Squamous Epithelial Cells 10-25 H /HPF Urine Crystals NONE /LPF Urine Bacteria FEW H /HPF Urine Casts NONE /LPF Urine Mucus NEGATIVE /LPF Urine Culture Indicated YES My Orders Orders - RIC TERRAZAS DO Ct Abdomen/Pelvis Wo (10/11/21 12:00) Metoclopramide Injection (Reglan Injecti (10/11/21 12:00) Ns Iv 1000 Ml (Sodium Chloride 0.9%) (10/11/21 12:00) Ed Iv/Invasive Line Start (10/11/21 12:00) Ketorolac Injection (Toradol Injection) (10/11/21 12:00) Ua Culture If Indicated (10/11/21 12:00) Urine Culture (10/11/21 11:52) Vital Signs/I&O 10/11/21 12:00 Temp 36.2 Pulse 87 Resp 16 B/P (MAP) 154/96 (115) Pulse Ox 97 O2 Delivery Room Air Progress Progress Note : Progress Note Patient with right sided kidney stone. I will have her call Dr. Horowitz office in the morning to arrange for outpatient management. This time she does not appear to have a urinary tract infection so we will not start her with antibiotics. We will give her hydrocodone and zofran for pain and nausea. She should return to the ER as needed. Diagnostic Imaging Diagonstic Imaging: CT Plain Films/CT/US/NM/MRI: abdomen Comments Date of Exam:10/11/21 CT ABDOMEN/PELVIS WO CT ABDOMEN/PELVIS WO TECHNIQUE: Unenhanced CT imaging of the abdomen and pelvis was performed. 2-D reformats are created and submitted for interpretation. Automatic exposure controls were utilized to optimize patient dose. INDICATION: Right lower quadrant pain. COMPARISON: 06/12/2021 FINDINGS: Evaluation of the abdominal viscera is suboptimal without contrast. Lower chest: The lung bases are clear. No pericardial or pleural effusion. Peritoneum: No free intraperitoneal air or fluid. Liver and biliary system: Unenhanced liver is normal. Cholecystectomy. No biliary duct dilation. Spleen and Pancreas: Spleen is normal. Unenhanced pancreas is grossly normal. Adrenals: Normal. tract: Moderate right hydronephrosis and hydroureter due to an obstructing 7 mm stone at the right UVJ. No left renal or ureteral stone. Additionally, there is no left-sided obstructive uropathy. The urinary bladder is decompressed, limiting assessment. Hysterectomy. No concerning adnexal mass. GI tract: Stomach is moderately distended with fluid and food debris and there is no wall thickening. No bowel obstruction. No pericolonic inflammatory changes. Sigmoid colon diverticulosis without diverticulitis. Appendix is normal. Vasculature and Lymph nodes: Normal caliber aorta. No abdominal or pelvic lymphadenopathy. Musculoskeletal: No concerning osseous lesion. IMPRESSION: 1. Moderate right hydronephrosis due to a 7 mm obstructing stone at the UVJ. Reviewed: Reviewed by Me, Reviewed/Discussed Departure Impression Primary Impression: Calculus of right ureter Disposition: 01 HOME, SELF-CARE Condition: Stable Departure-Patient Inst. Referrals: DAKOTA AU APRN (PCP) Primary Care Physician [facility]/[place] (Family) Primary Care Physician Patient Instructions: How to Strain Your Urine, Renal Colic, Kidney Stones (DC) Add. Discharge Instructions: Please call Dr. Horowitz office in the morning and make them aware that you have a 7 mm obstructing stone in your distal right ureter to arrange for outpatient treatment. All discharge instructions reviewed with patient and/or family. Voiced und erstanding. Scripts Ondansetron (Ondansetron Odt) 4 Mg Tab.rapdis 4 MG PO Q6H PRN for NAUSEA/VOMITING, #20 TAB 0 Refills Prov: RIC TERRAZAS DO 10/11/21 Hydrocodone/Acetaminophen (Hydrocodone-Acetamin 5-325 mg) 5 Mg-325 Mg Tablet 1 TAB PO Q6H PRN for PAIN-MODERATE (5-7), #5 TAB Prov: RIC TERRAZAS DO 10/11/21 RIC TERRAZAS DO Oct 11, 2021 11:53
[2021-10-11] MEDS ORDERED: NS IV 1000 ML 1,000 ML IV STA (12:00)
[2021-10-11] MEDS ORDERED: KETOROLAC 30 MG/ML VIAL IVP STA (12:00)
[2021-10-11] MEDS ORDERED: METOCLOPRAMIDE INJ 10 MG/2 ML (REGLAN) IVP STA (12:00)
[2021-10-11 12:07] LABS: BILIRUBIN,URINE NEGATIVE (NEGATIVE); CLARITY,URINE CLEAR; COLOR,URINE YELLOW; GLUCOSE, URINE (UA) NEGATIVE (NEGATIVE); KETONES,URINE NEGATIVE (NEGATIVE); LEUKOCYTE ESTERASE ,URINE NEGATIVE (NEGATIVE); NITRITE,URINE NEGATIVE (NEGATIVE); PH,URINE 5.5 (5-9); PROTEIN,URINE NEGATIVE (NEGATIVE)
[2021-10-11 12:12] LABS: BACTERIA,URINE FEW /HPF
--- NOTE | 2021-10-11 12:29 | Diagnostic Imaging Report ---
CT ABDOMEN/PELVIS WO TECHNIQUE: Unenhanced CT imaging of the abdomen and pelvis was performed. 2-D reformats are created and submitted for interpretation. Automatic exposure controls were utilized to optimize patient dose. INDICATION: Right lower quadrant pain. COMPARISON: 06/12/2021 FINDINGS: Evaluation of the abdominal viscera is suboptimal without contrast. Lower chest: The lung bases are clear. No pericardial or pleural effusion. Peritoneum: No free intraperitoneal air or fluid. Liver and biliary system: Unenhanced liver is normal. Cholecystectomy. No biliary duct dilation. Spleen and Pancreas: Spleen is normal. Unenhanced pancreas is grossly normal. Adrenals: Normal. tract: Moderate right hydronephrosis and hydroureter due to an obstructing 7 mm stone at the right UVJ. No left renal or ureteral stone. Additionally, there is no left-sided obstructive uropathy. The urinary bladder is decompressed, limiting assessment. Hysterectomy. No concerning adnexal mass. GI tract: Stomach is moderately distended with fluid and food debris and there is no wall thickening. No bowel obstruction. No pericolonic inflammatory changes. Sigmoid colon diverticulosis without diverticulitis. Appendix is normal. Vasculature and Lymph nodes: Normal caliber aorta. No abdominal or pelvic lymphadenopathy. Musculoskeletal: No concerning osseous lesion. IMPRESSION: 1. Moderate right hydronephrosis due to a 7 mm obstructing stone at the UVJ. Dictated by: Dictated on workstation # [id number]
[2021-10-11] MEDS ORDERED: ONDA4TAB11 PO (12:37)
[2021-10-11] MEDS ORDERED: ACHD5005 PO (12:37)
[2021-10-11 12:42] VITALS: BP 140/92
== END 2021-10-11 12:42 | disposition home or self-care (01) ==
LOC: EDUNIT# 11:48 → ER FS 11:49
DX: N13.2 Hydronephrosis with renal and ureteral calculous obstruction (principal); Z86.711 Personal history of pulmonary embolism; Z79.01 Long term (current) use of anticoagulants
CPT/HCPCS: 74176; 81000; 87088